=== PATIENT | female | born 1955 | race Caucasian/White ===

== ENCOUNTER 2016-09-28 08:13 | Inpatient (IN) ==
[~2016-09-28 08:13] MED LIST: ASPIRIN 325 MG TABLET PO ONE; DIAZEPAM 5 MG TABLET PO ONE; MAGNESIUM SULF RIDER 2 GM in PREMIX 1 EACH IV PRN; POTASSIUM CHLORIDE RIDER 10 MEQ in PREMIX 1 EACH IV PRN; diphenhydrAMINE CAP 25 MG CAPSULE PO ONE
[2016-09-28] MEDS ORDERED: ALBUTEROL 0.63 MG/3 ML NEB RESP TX STA (09:31)
[2016-09-28] MEDS ORDERED: DIAZEPAM 5 MG TABLET ONE (09:44)
[2016-09-28] MEDS ORDERED: diphenhydrAMINE CAP 25 MG CAPSULE ONE (09:44)
[2016-09-28] MEDS ORDERED: ASPIRIN 325 MG TABLET ONE (09:44)
[2016-09-28] MEDS: SODIUM CHLORIDE 0.45% 1,000 ML IV SCH ×2 (10:01→23:52)
[2016-09-28] MEDS ORDERED: HEPARIN/NACL 0.9% 2 UNITS/ML 1,000 ML IV ONE (10:47)
[2016-09-28] MEDS ORDERED: SODIUM BICARBONATE 2.4 MEQ/5 ML VIAL ONE (10:47)
[2016-09-28] MEDS ORDERED: LIDOCAINE 1% 20 ML VIAL ONE (10:47)
--- NOTE | 2016-09-28 11:00 | History and Physical Update ---
Sedation H&P Update - History and Physical H&P was reviewed, the patient examined and there: are no changes in the patients condition since last H&P was completed. - Dictation Physical: refer to scanned H&P - Physical Exam Mental Status: alert and oriented Heart: regular rate and rhythm Lung: clear to auscultation Abdomen: within normal limits Vitals: within normal limits - Sedation Plan for Sedation: moderate Patient Consent: Procedure disscussed with patient and patinet has consented., Risks and benefits were discussed with patient,including infection,, bleeding, injury to surrounding structures, seizure, temporary nerve, Patient understands and accepts potential risks/benefits and agrees to, proceed. ASA Class: IV Airway Assessment: Class II: Soft palate, uvula, fauces visible
[2016-09-28] MEDS ORDERED: fentaNYL 100 MCG/2 ML VIAL ONE ×2 (11:06→11:47)
[2016-09-28] MEDS ORDERED: MIDAZOLAM 2 MG/2 ML VIAL ONE ×2 (11:06→11:27)
[2016-09-28] MEDS ORDERED: ALBUTEROL 2.5 MG/3 ML NEB RESP TX PRN ×2 (12:09→13:18)
[2016-09-28] MEDS ORDERED: traMADol 50 MG TABLET PO PRN (12:09)
[2016-09-28] MEDS ORDERED: NON-FORMULARY MEDICATION (Albuterol Sulfate [Proair Respiclick] 2 PUFF) INH PRN (12:09)
[2016-09-28] MEDS ORDERED: NITROGLYCERIN SL 0.4 MG TABLET SL PRN (12:13)
[2016-09-28] MEDS ORDERED: ONDANSETRON 4 MG/2 ML VIAL IV PRN (12:13)
[2016-09-28] MEDS ORDERED: ACETAMINOPHEN 325 MG TABLET PO PRN (12:13)
[2016-09-28] MEDS ORDERED: MORPHINE 2 MG/1 ML SYRINGE IV PRN (12:13)
[2016-09-28] MEDS ORDERED: GLUCAGON 1 MG VIAL IM PRN (12:16)
[2016-09-28] MEDS ORDERED: DEXTROSE 50% 25 GM/50 ML VIAL IV PRN (12:16)
--- NOTE | 2016-09-28 12:26 | Cardiac Catheterization ---
Date of Procedure:: 09/28/16 Pre-op Diagnosis: Severe shortness of breath Post-op diagnosis: other (Mild pulmonary hypertension, angiographically normal codominant coronary arteries) Procedure: 1. Selective left and right coronary angiography. 2. Left heart catheterization with left ventriculogram. 3. Right iliac angiography to rule out vascular complications. 4. Right heart catheterization. 5. Application of Vascade closure device of the right femoral arteriotomy site. Impression: 1. Angiographically normal coronary arteries. 2. co-dominant coronary arteries. 3. Ejection fraction 65 %. 4. Angiographically normal right iliac artery without evidence of vascular complications. 5. Mild pulmonary hypertension. Plan: 1. Risk factor modification. 2. Noncardiac evaluation of symptoms. Equipment: Diagnostic 6 [place] JL4, JR4, pigtail catheters, [place] catheter. Hemodynamics: Aortic pressure 159/70 mmHg, left ventricular pressure 150/17 mmHg, LVEDP 26 mmHg Right atrial pressure 2 mmHg, right ventricle 47/29 mmHg, pulmonary artery pressure 47/28 mmHg, wedge pressure 20 mmHg Thermodilution cardiac output 7.11 L/min Sedation: Versed 4 mg, fentanyl 125 mcg Procedure: After informed consent was obtained the patient was prepped and draped in sterile fashion. The right groin was infiltrated with 1% lidocaine and the right femoral vein and artery were accessed via modified Seldinger technique using a micropuncture needle and 6 [place] femoral venous and arterial sheaths were placed. A [place] catheter was advanced through the venous sheath into the pulmonary artery where thermodilution measurements were obtained. Right heart pressures were obtained on catheter pullback. The [place] catheter was discarded and attention was turned to the left heart catheterization. All catheter exchanges were performed over a guidewire under fluoroscopic guidance. Diagnostic 6 [place] JL4 and JR4 catheters were advanced to the left and right coronary arteries respectively and multiple cineangiograms were performed in varying degrees of obliquity and angulation. Thereafter a pigtail catheter was advanced into the left ventricle where hemodynamics were obtained followed by left ventriculogram. At conclusion of the procedure right iliac angiography was performed to rule out vascular complications. A Vascade closure device was unsuccessfully applied to the right femoral arteriotomy site. Findings: 1. The left main artery is short and otherwise angiographically normal. 2. The left anterior descending artery extends to the apex and wraps around. It is angiographically normal. 3. There is not an intermediate ramus branch. 4. The circumflex artery is a codominant vessel, free of significant disease. 5. The right coronary artery is a codominant vessel supplying the posterior descending artery. It is angiographically normal. 6. Ejection fraction is 65 % with normal anterior, inferior and apical wall motion. 7. No significant mitral regurgitation. 8. No significant aortic stenosis. 9. The right iliac artery is angiographically normal without evidence of vascular complications. Contrast use: Omnipaque 78 cc Complications: none Specimens removed: none Devices implanted: Vascade Surgeon / Physician: Tiffany Coburn Fan Installer: none (Lenora Castellon) Estimated blood loss: minimal Specimens: none sent Condition: stable Disposition: floor - Discharge Disposition: Disch To Home/Self Care Condition at Discharge: Stable Activity: no lifting (For 1 week) Hygiene: may shower Driving: not for (1 more day) - Medications / Follow-up Referrals: Tiffany Coburn MD [Physician] - 2 Weeks
--- NOTE | 2016-09-28 12:29 | Event Note ---
The patient was admitted to the [facility] for elective left and right heart catheterization. Upon admission she was observed to have significant worsening in her breathing. She has severe, oxygen dependent COPD and is usually followed by Dr. Nugent. When I saw her in clinic last week she was expressing some symptoms of worsening dyspnea. Chest x-ray was mildly abnormal with possible pneumonia so Levaquin was initiated. When I initially encountered her in the [facility] preoperatively she had even further worsening of her breathing was profoundly dyspneic, it took a while and some nebulizer treatments to resolve her resting tachypnea. Because of her severe pulmonary disease and worsening symptoms, I am going to admit her for observation so that Dr. Nugent can evaluate her and recommend any further workup or treatment.
[2016-09-28] MEDS ORDERED: CYANOCOBALAMIN 1000 MCG/1 ML VIAL IM SCH (12:30)
--- NOTE | 2016-09-28 13:21 | XRay Report ---
Portable chest Date: 09/28/2016 Clinical history: COPD, PNA, shortness of breath Comparison: 09/23/2016 Technique: Portable AP supine chest Findings: The heart is borderline in size. The lungs are overexpanded with chronic scarring. Diffuse parenchymal findings at the lung bases. Decreased parenchymal findings in the right infrahilar location. Smaller pleural effusions. Stable mediastinum and osseous structures. Impression: COPD with chronic scarring. Reduced atelectasis/infiltration in the right infrahilar location. Additional minimal infiltration/edema at the lung bases with smaller pleural effusions. PROCEDURE INTERPRETED AT [facility] DEPARTMENT OF RADIOLOGY Final Report Signed by: Dr. Marybel Abebe
[2016-09-28 13:47] LABS: Basophils # 0.1 10*3/uL (0.0-0.2); Basophils % 0.8 % (0.0-0.8); Calcium 8.4 MG/DL (8.5-10.1); Eosinophils # 0.2 10*3/uL (0.0-0.87); Hemoglobin 9.7 GM/DL (12.0-16.0); Immature Granulocytes % 0.3 %; Immature Granulocytes Absolute 0.03 #; Lymphocytes # 1.9 10*3/uL (1.4-4.0); Lymphocytes % 18.1 % (21.3-54.2); Mean Corpuscular HGB Conc 29.5 GM/DL (32-36); Mean Corpuscular Hemoglobin 24 PG (27-34); Mean Corpuscular Volume 79.7 FL (87-102); Mean Platelet Volume 9.4 FL (9.6-12.0); Monocytes # 0.8 10*3/uL (0.11-0.8); Monocytes % 7.5 % (1.7-12.7); Neutrophils # 7.6 10*3/uL (1.4-7.4); Neutrophils % 71.3 % (38.7-73.9); Osmolality,Calculated 280.1 MOS/KG (273-304); Platelet Count 263 T/CUMM (130-400); Potassium 3.8 MMOL/L (3.5-5.1); Red Blood Count 4.13 MC/CUMM (3.8-5.5); Red Cell Distribution Width 16.4 % (9.3-17.3); White Blood Count 10.6 T/CUMM (4-12)
[2016-09-28 13:48] LABS: Hematocrit 32.9 VOL% (35.7-47.0)
--- NOTE | 2016-09-28 15:37 | Pulmonology Consult Note ---
Assessment and Plan (1) Severe chronic obstructive pulmonary disease Status: Acute Assessment and plan: The patient has very severe COPD and is very limited. Will give her a short course of IV steroids and continue respiratory therapy. Current Visit: Yes (2) Hypertension Status: Acute Assessment and plan: Her blood pressure has been reasonably stable Current Visit: Yes (3) Steroid-induced diabetes Status: Acute Assessment and plan: She will have some hyperglycemia while on steroids. Current Visit: Yes (4) Obstructive sleep apnea Status: Acute Assessment and plan: She can use her oxygen and CPAP at night. Current Visit: Yes History of Present Illness Chief complaint: Shortness of breath History of present illness: Ms. Newman is a 61 year old white female that is very well known to me. She has a long history of severe COPD and actually has been on the transplant list at [facility]. She has a history of hypertension and diabetes and obstructive sleep apnea. She came in today for cardiac catheterization. She had been having more chest tightness with exertion. Her cardiac catheterization turned out to be okay but she is having a little more trouble with her breathing. She is not coughing up any purulent secretions. Last week she did take some antibiotics for possible mild pneumonia. She did reasonably well with the catheterization. Home Medications Medication Instructions Recorded Confirmed Type Albuterol Neb [Proventil Neb] 2.5 mg RESP TX Q6H PRN 09/01/16 09/28/16 History Albuterol Sulfate [Proair 2 puff INH Q4H PRN 09/01/16 09/28/16 History Respiclick] Aspirin EC Tab 81 mg PO DAILY 09/01/16 09/28/16 History Atorvastatin [Lipitor] 20 mg PO BEDTIME 09/01/16 09/28/16 History Calcium Carbonate 600 mg PO BID 09/01/16 09/28/16 History Cyanocobalamin Inj [Vitamin B12 1,000 mcg IM Q30D 09/01/16 09/28/16 History Inj] Ferrous Sulfate [Ferrous Sulfate 325 mg PO BID 09/01/16 09/28/16 History Cap] Fluticasone/Salmeterol 500-50 1 puff INH BID 09/01/16 09/28/16 History [Advair 500-50] Furosemide Tab [Lasix Tab] 20 mg PO DAILY 09/01/16 09/28/16 History Magnesium Chloride [Slow Mag] 64 mg PO DAILY 09/01/16 09/28/16 History Metoclopramide Tab [Reglan Tab] 10 mg PO ACHS 09/01/16 09/28/16 History [place]-3 Fatty Acids [Fish Oil 1,000 mg PO DAILY 09/01/16 09/28/16 History Concentrate] Omeprazole [Prilosec] 20 mg PO BID 09/01/16 09/28/16 History Potassium Chloride [Klor-Con 8] 8 meq PO BID 09/01/16 09/28/16 History Roflumilast [Daliresp] 500 mcg PO DAILY 09/01/16 09/28/16 History Sennosides/Docusate Sodium [Stool 1 each PO BID 09/01/16 09/28/16 History Softener Tablet] Theophylline ER Tab 300 mg PO BID W/MEALS 09/01/16 09/28/16 History Tramadol HCl [Ultram] 50 mg PO Q6H PRN 09/01/16 09/28/16 History Vortioxetine Hydrobromide 10 mg PO DAILY 09/01/16 09/28/16 History [Brintellix] Zolpidem Tartrate [Ambien] 10 mg PO BEDTIME 09/01/16 09/28/16 History guaiFENesin ER TAB [Mucinex] 600 mg PO DAILY 09/01/16 09/28/16 History metFORMIN [Glucophage] 500 mg PO DAILY W/BREAKFAST 09/01/16 09/28/16 History dilTIAZem HCl [Cartia XT] 360 mg PO DAILY 09/02/16 09/28/16 History Levofloxacin Tab [Levaquin Tab] 500 mg PO DAILY tablet 09/28/16 Rx Allergies Allergy/AdvReac Type Severity Reaction Status Date / Time No Known Allergies Allergy Verified 09/01/16 13:41 - Constitutional Constitutional: Present: fatigue, weight gain. Absent: chills, fever(s) - EENT Eyes: Absent: loss of vision Ears: Absent: decreased hearing Nose, mouth and throat: Absent: dysphagia, headache(s), nasal congestion - Cardiovascular Cardiovascular: Present: chest pain with activity, dyspnea on exertion, orthopnea. Absent: chest pain at rest, edema - Respiratory Respiratory: Present: cough, wheezing. Absent: pain on inspiration, change in phlegm color - Gastrointestinal Gastrointestinal: Absent: abdominal pain, change in bowel habits, dysphagia, nausea, vomiting - Genitourinary Genitourinary: Absent: dysuria, hematuria, urinary frequency - Musculoskeletal Musculoskeletal: Present: back pain, muscle weakness - Neurological Neurological: Absent: abnormal speech, focal weakness, paresthesias Exam (Pulmonay) H&P - Constitutional Vitals: Period Temp Pulse Resp BP Sys/Perez Pulse Ox Last 24 Hr 98.0 F 80-103 18-20 143-186/61-78 92-98 General appearance: mild distress (She is mildly tachypneic now.), over weight - Head Head exam: Present: normal inspection, normocephalic - Eye Eye exam: Present: EOMI. Absent: scleral icterus Pupils: Present: BARRY - ENT ENT exam: Present: normal exam - Neck Neck exam: Present: normal inspection. Absent: lymphadenopathy, thyromegaly - Respiratory Respiratory exam: Present: decreased breath sounds, prolonged expiratory phase, wheezes (She does have mild wheezing) - Cardiovascular Cardiovascular exam: Present: regular rate and rhythm. Absent: gallop, systolic murmur - GI/Abdominal GI/Abdominal exam: Present: normal bowel sounds, soft. Absent: distended, organomegaly, tenderness - Extremities Exam Extremities exam: Absent: calf tenderness, edema - Neurological Exam Neurological exam: Present: alert, oriented X3, CN II-XII intact - Psychiatric Psychiatric exam: Present: normal affect, normal mood - Skin Skin exam: Present: warm, dry Medical,Surgical,& Family Hx - Medical History Cardio: History of: Hypertension No history of: Cardiac Dysrhythmia, Congenital Heart Disease, [place] Psychological: History of: Anxiety Disorders, Depression Neurology: No history of: Peripheral Neuropathy, Seizures HEENT: No history of: Glaucoma Endocrine: History of: Diabetes Mellitus (NIDDM), Dyslipidemia No history of: Thyroid Disorder Respiratory: History of: COPD (chronic respiratory failure), Respiratory Problems (4 liters O2) Gastrointestinal: History of: GERD No history of: Hepatitis, Liver Problems Hematology: History of: Anemia No history of: Blood Transfusion Reaction Other: No history of: Anesthesia Reactions, Cancer - Surgical History Cardiac Surgeries: Sugical HX of: Cardiac Catheterization HEENT Surgeries: Patient denies: Eye Surgery, Tonsilectomy & Adenoidectomy Abdominal Surgeries: Surgical HX of: Appendectomy, Cholecystectomy, Colonoscopy , EGD Reproductive Surgeries: Surgical HX of;: Hysterectomy Patient denies;: Breast Surgery Orthopedic Surgeries: Surgical HX of;: Orthopedic Surgery (left foot, right elbow, left elbow) - Family History Family History: Denies;: Family Cancer - Social History Smoking Status: Former smoker Frequency of Alcohol Use: None Type of Drug Use: None Results - Labs CBC & BMP: 09/28/16 13:10 09/28/16 13:10 - Diagnostic Findings Procedure: Chest x-ray: image reviewed by me, report reviewed by me (Chest x- ray show significant COPD change with slight increased markings in the right base.) Specialty Discharge - Follow Up or Referrals Follow up with: Tiffany Coburn MD [Physician] - 2 Weeks
[2016-09-28] MEDS: INSULIN REGULAR 100 UNIT/ML SUBCUT SCH ×2 (15:57→20:48)
[2016-09-28] MEDS: THEOPHYLLINE ER 300 MG TABLET PO SCH (17:06)
[2016-09-28] MEDS: METOCLOPRAMIDE 10 MG TABLET PO SCH ×2 (17:06→20:49)
[2016-09-28] MEDS: ACETAMINOPHEN/CODEINE 300-30 MG TABLET PO PRN (17:10)
[2016-09-28] MEDS: methylPREDNISolone SOD SUC 40 MG/1 ML VIAL IV SCH (17:12)
[2016-09-28] MEDS: ALBUTEROL/IPRATROPIUM 3 ML NEB RESP TX SCH (19:52)
[2016-09-28] MEDS: ZALEPLON 5 MG CAPSULE PO SCH (20:48)
[2016-09-28] MEDS: ATORVASTATIN 20 MG TABLET PO SCH (20:48)
[2016-09-28] MEDS: FLUTICASONE/SALMETEROL 500-50 DISKUS 14 DOSE INH SCH (20:48)
[2016-09-28] MEDS: CALCIUM (CARBONATE) 600 MG TABLET PO SCH (20:49)
[2016-09-28] MEDS: POTASSIUM CHLORIDE 8 MEQ CAPSULE PO SCH (20:49)
[2016-09-28] MEDS: DOCUSATE/SENNA 50-8.6 MG TABLET PO SCH (20:49)
[2016-09-28] MEDS: FERROUS SULFATE 325 MG TABLET PO SCH (20:49)
[2016-09-29] MEDS: methylPREDNISolone SOD SUC 40 MG/1 ML VIAL IV SCH ×4 (00:06→23:51)
[2016-09-29] MEDS: ALBUTEROL/IPRATROPIUM 3 ML NEB RESP TX SCH ×4 (00:34→19:31)
[2016-09-29] MEDS: SODIUM CHLORIDE 0.45% 1,000 ML IV SCH ×2 (02:30→13:30)
[2016-09-29] MEDS: ENOXAPARIN 40 MG/0.4 ML SYRINGE SUBCUT SCH (05:45)
[2016-09-29 05:54] LABS: Calcium 9.2 MG/DL (8.5-10.1); Potassium 4.2 MMOL/L (3.5-5.1)
[2016-09-29 06:20] LABS: Basophils % 0.3 % (0.0-0.8); Hematocrit 36.5 VOL% (35.7-47.0); Hemoglobin 10.8 GM/DL (12.0-16.0); Immature Granulocytes Absolute 0.12 #; Lymphocytes # 0.4 10*3/uL (1.4-4.0); Mean Corpuscular HGB Conc 29.6 GM/DL (32-36); Mean Corpuscular Hemoglobin 24 PG (27-34); Mean Corpuscular Volume 80.2 FL (87-102); Mean Platelet Volume 9.9 FL (9.6-12.0); Monocytes # 0.1 10*3/uL (0.11-0.8); Monocytes % 0.6 % (1.7-12.7); Neutrophils # 11.6 10*3/uL (1.4-7.4); Neutrophils % 95.1 % (38.7-73.9); Platelet Count 273 T/CUMM (130-400); Red Blood Count 4.55 MC/CUMM (3.8-5.5); White Blood Count 12.2 T/CUMM (4-12)
[2016-09-29 06:49] LABS: Band Neutrophils 1 % (0-10); Hypochromasia 1+; Lymphocytes 5 % (20-55); Microcytosis 1+; Segmented Neutrophils 93 % (50-85); Total Cells Counted 100
[2016-09-29 06:50] LABS: Platelet Estimate Normal
--- NOTE | 2016-09-29 08:30 | Pulmonology Progress Note ---
Pulmonary - PN: Subj Interval history: The patient is a 61-year-old white lady with very severe COPD. She came in and had a cardiac catheterization yesterday. Last week she had been having a little bit of cough and congestion and she still little short of breath now. She feels a little better but still has some sputum production. She is starting to move around a little better. She feels like her breathing may be better today. Exam (Progress Note) - Constitutional Vitals: Period Temp Pulse Resp BP Sys/Perez Pulse Ox Last 24 Hr 97.1 F-98.6 F 80-109 16-22 131-186/60-89 89-98 Exam: General appearance: no distress (She looks more comfortable today and is less short of breath.), over weight - Head Head exam: Present: normal inspection, normocephalic - Eye Eye exam: Present: EOMI. Absent: scleral icterus Pupils: Present: BARRY - ENT ENT exam: Present: normal exam - Neck Neck exam: Present: normal inspection. Absent: lymphadenopathy, thyromegaly - Respiratory Respiratory exam: Present: She has fair breath sounds bilaterally with mild wheezing now. - Cardiovascular Cardiovascular exam: Present: regular rate and rhythm. Absent: gallop, systolic murmur - GI/Abdominal GI/Abdominal exam: Present: normal bowel sounds, soft. Absent: distended, organomegaly, tenderness - Extremities Exam Extremities exam: Absent: calf tenderness, edema - Neurological Exam Neurological exam: Present: alert, oriented X3, CN II-XII intact - Psychiatric Psychiatric exam: Present: normal affect, normal mood - Skin Skin exam: Present: warm, dry Results - Labs CBC & BMP: 09/29/16 04:49 09/29/16 04:49 Assessment and Plan (1) Severe chronic obstructive pulmonary disease Status: Acute Assessment and plan: The patient has very severe COPD and is very limited. Will give her a short course of IV steroids and continue respiratory therapy. She does look a little better today. Current Visit: Yes (2) Hypertension Status: Acute Assessment and plan: Her blood pressure has been reasonably stable Current Visit: Yes (3) Steroid-induced diabetes Status: Acute Assessment and plan: She will have some hyperglycemia while on steroids. Her glucose is 136 this morning. Current Visit: Yes (4) Obstructive sleep apnea Status: Acute Assessment and plan: She can use her oxygen and CPAP at night. Current Visit: Yes Specialty Discharge - Follow Up or Referrals Follow up with: Tiffany Coburn MD [Physician] - 2 Weeks
[2016-09-29] MEDS: INSULIN REGULAR 100 UNIT/ML SUBCUT SCH ×4 (08:36→21:03)
[2016-09-29] MEDS: POTASSIUM CHLORIDE 8 MEQ CAPSULE PO SCH ×2 (08:49→21:05)
[2016-09-29] MEDS: MAGNESIUM CHLORIDE 64 MG TABLET PO SCH (08:49)
[2016-09-29] MEDS: LEVOFLOXACIN 500 MG TABLET PO SCH (08:49)
[2016-09-29] MEDS: THEOPHYLLINE ER 300 MG TABLET PO SCH ×2 (08:49→16:23)
[2016-09-29] MEDS: FERROUS SULFATE 325 MG TABLET PO SCH ×2 (08:49→21:03)
[2016-09-29] MEDS: ASPIRIN EC 81 MG TABLET PO SCH (08:49)
[2016-09-29] MEDS: DOCUSATE/SENNA 50-8.6 MG TABLET PO SCH ×2 (08:50→21:03)
[2016-09-29] MEDS: DILTIAZEM CD 180 MG CAPSULE PO SCH (08:50)
[2016-09-29] MEDS: METOCLOPRAMIDE 10 MG TABLET PO SCH ×4 (08:50→21:03)
[2016-09-29] MEDS: OMEGA 3 ACID ETHYL ESTERS 1 GM CAPSULE PO SCH (08:50)
[2016-09-29] MEDS: ROFLUMILAST 500 MCG TABLET PO SCH (08:50)
[2016-09-29] MEDS: CALCIUM (CARBONATE) 600 MG TABLET PO SCH ×2 (08:50→21:02)
[2016-09-29] MEDS: FUROSEMIDE 20 MG TABLET PO SCH (08:51)
[2016-09-29] MEDS: PANTOPRAZOLE 40 MG TABLET PO SCH ×2 (08:51→21:02)
[2016-09-29] MEDS: cefTRIAXone 1,000 MG in SODIUM CHLORIDE 0.9% 100 ML IV SCH (08:53)
[2016-09-29] MEDS: FLUTICASONE/SALMETEROL 500-50 DISKUS 14 DOSE INH SCH ×2 (08:53→21:02)
[2016-09-29] MEDS ORDERED: BRINTELLIX 10 MG PO SCH (09:00)
--- NOTE | 2016-09-29 11:37 | Cardiology Progress Note ---
<Bell Antunez - Last Filed: 09/29/16 11:20> Assessment and Plan (1) Hypertension Status: Acute Assessment and plan: See plan of care listed below. Current Visit: Yes (2) Severe chronic obstructive pulmonary disease Status: Chronic Assessment and plan: See plan of care listed below. Current Visit: Yes (3) Diabetes Status: Chronic Assessment and plan: See plan of care listed below. Current Visit: Yes (4) Hyperlipidemia Status: Chronic Assessment and plan: See plan of care listed below. Current Visit: Yes (5) Obstructive sleep apnea Status: Chronic Assessment and plan: See plan of care listed below. Current Visit: Yes Cardiology - PN: Subj Interval history: Board Runner: Dr. Coburn The patient was admitted to the [facility] for elective left and right heart catheterization. Upon admission she was observed to have significant worsening in her breathing. She has severe, oxygen dependent COPD and is usually followed by Dr. Nugent. Chest x-ray was mildly abnormal with possible pneumonia so Levaquin was initiated. She is now status post heart catheterization per Dr. Coburn with the following impressions noted: Impression: 1. Angiographically normal coronary arteries. 2. co-dominant coronary arteries. 3. Ejection fraction 65 %. 4. Angiographically normal right iliac artery without evidence of vascular complications. 5. Mild pulmonary hypertension. Plan: 1. Risk factor modification. 2. Noncardiac evaluation of symptoms. Postoperatively, she was transferred to the telemetry unit in stable condition. Because of her severe pulmonary disease and worsening dyspnea and tachypnea, she was admitted for observation so that Dr. Chino Nugent can evaluate her and recommend any further workup or treatment. She was evaluated by Dr. Chino Nugent yesterday. IV steroid therapy and IV Rocephin was initiated. She reports that her breathing has slightly improved. However, it has not yet returned to baseline. Per patient's report, Dr. Nugent wants her to stay in the hospital for a couple more days for treatment of her pneumonia. Right groin is soft without bleeding or hematoma and bruit. Distal pulses present. Patient is ambulated around the room without difficulty. Right groin has remained stable post ambulation. Labs stable. Patient is doing well post heart catheterization and is stable for discharge when ok with pulmonary. She will be given follow-up appointment with Dr. Coburn 2 weeks after discharge. Assessment/plan: 1. PNEUMONIA - White blood cell count 12.2. Afebrile. Continue current plan of care with IV antibiotics. Management per pulmonary. 2. SEVERE COPD - Management per pulmonary. 3. OBSTRUCTIVE SLEEP APNEA - CPAP nightly 4. HYPERLIPDEMIA - Continue current plan of care with lipid lowering agent. 5. DIABETES -Clinically stable. Continue sliding scale insulin. Will monitor blood sugar closely as patient is on steroid therapy. Metformin can be resumed 48 hours post catheterization. 6. HYPERTENSION -This suboptimally controlled. Low-dose MARCIAL inhibitor has been added to patient's medication regimen patient is a diabetic. 7. STATUS POST RIGHT AND LEFT HEART CATH - Patient is doing well post heart catheterization and is stable for discharge when ok with pulmonary. -Further plan and addendum to follow per Dr. Burrell. Exam (Progress Note) - Constitutional Vitals: Period Temp Pulse Resp BP Sys/Perez Pulse Ox Last 24 Hr 97.1 F-98.6 F 80-109 16-22 131-169/60-89 89-98 Exam: General: Appears well with no apparent distress. Pleasant and cooperative. Appears comfortable. HEENT: PERRL, normocephalic, atraumatic. Mucous membranes moist. No jaundice noted. Conjunctiva moist and clear, sclerae anicteric Neck: No JVD/HJR, no thyromegaly or lymphadenopathy noted. No carotid bruit appreciated Cardiac: Regular rate and rhythm. No murmur rub or gallop. Lungs: Minimal wheezing noted, requiring oxygen 2 L via nasal cannula. Abdomen: Soft, bowel sounds normoactive. Nontender and nondistended. No abdominal bruit or thrill noted. No masses noted. Extremities: No clubbing, cyanosis noted. No edema noted. Upper extremity pulses 2+. Lower extremity pulses 2+. Capillary refill less than 3 seconds. Right groin soft without bleeding, hematoma and bruit. Distal pulses 2+. Skin: No unusual lesions or rashes. No skin breakdown appreciated. Neuro: Awake, alert and oriented 3. Moves all extremities well without hemiparesis or paralysis. No essential tremor is appreciated. Result/EKG - Labs CBC & BMP: 09/29/16 04:49 09/29/16 04:49 Lab Results: I have reviewed the past 24 hour labs Labs: Laboratory Results - last 24 hr 09/28/16 09/28/16 09/28/16 13:10 13:10 15:39 WBC 10.6 RBC 4.13 Hgb 9.7 L Hct 32.9 L MCV 79.7 L MCH 24 L MCHC 29.5 L RDW 16.4 Plt Count 263 MPV 9.4 L Neut % (Auto) 71.3 Lymph % (Auto) 18.1 L [place] % (Auto) 7.5 Eos % (Auto) 2.0 Baso % (Auto) 0.8 Neut # (Auto) 7.6 H Lymph # (Auto) 1.9 [place] # (Auto) 0.8 Eos # (Auto) 0.2 Baso # (Auto) 0.1 Total Counted Immature Gran % 0.3 Nucleated RBC % 0.0 Immature Gran # 0.03 Segmented Neutrophils Band Neutrophils Lymphocytes Monocytes Nucleated RBCs # 0.00 Platelet Estimate Hypochromasia Microcytosis Sodium 142 Potassium 3.8 Chloride 96 L Carbon Dioxide 43 H Anion Gap 6.8 BUN 8 Creatinine 0.60 GFR Calculation 113 BUN/Creatinine Ratio 13.00 Glucose 106 POC Glucose 114 H Calculated Osmolality 280.1 Calcium 8.4 L Theophylline 09/28/16 09/28/16 09/29/16 18:01 19:49 04:49 WBC 12.2 H RBC 4.55 Hgb 10.8 L Hct 36.5 MCV 80.2 L MCH 24 L MCHC 29.6 L RDW 16.0 Plt Count 273 MPV 9.9 Neut % (Auto) 95.1 H Lymph % (Auto) 3.0 L [place] % (Auto) 0.6 L Eos % (Auto) 0.0 Baso % (Auto) 0.3 Neut # (Auto) 11.6 H Lymph # (Auto) 0.4 L [place] # (Auto) 0.1 L Eos # (Auto) 0.0 Baso # (Auto) 0.0 Total Counted 100 Immature Gran % 1.0 Nucleated RBC % 0.0 Immature Gran # 0.12 Segmented Neutrophils 93 H Band Neutrophils 1 Lymphocytes 5 L Monocytes 1 L Nucleated RBCs # 0.00 Platelet Estimate Normal Hypochromasia 1+ Microcytosis 1+ Sodium Potassium Chloride Carbon Dioxide Anion Gap BUN Creatinine GFR Calculation BUN/Creatinine Ratio Glucose POC Glucose 214 H Calculated Osmolality Calcium Theophylline 2.8 L 09/29/16 09/29/16 04:49 07:26 WBC RBC Hgb Hct MCV MCH MCHC RDW Plt Count MPV Neut % (Auto) Lymph % (Auto) [place] % (Auto) Eos % (Auto) Baso % (Auto) Neut # (Auto) Lymph # (Auto) [place] # (Auto) Eos # (Auto) Baso # (Auto) Total Counted Immature Gran % Nucleated RBC % Immature Gran # Segmented Neutrophils Band Neutrophils Lymphocytes Monocytes Nucleated RBCs # Platelet Estimate Hypochromasia Microcytosis Sodium 143 Potassium 4.2 Chloride 97 L Carbon Dioxide 41 H Anion Gap 9.2 BUN 8 Creatinine 0.50 L GFR Calculation 120 BUN/Creatinine Ratio 16.00 Glucose 136 H POC Glucose 141 H Calculated Osmolality 284.0 Calcium 9.2 Theophylline Specialty Discharge - Follow Up or Referrals Follow up with: Tiffany Coburn MD [Physician] - 2 Weeks <Ron Burrell - Last Filed: 09/29/16 15:55> Cardiology - PN: Subj Interval history: This patient was admitted postcatheterization for an exacerbation of severe COPD. She has better with intravenous steroids as outlined by Dr. Nugent we will continue following. She is cardiac stable and her cath site is healing well. Exam (Progress Note) - Constitutional Vitals: Period Temp Pulse Resp BP Sys/Perez Pulse Ox Last 24 Hr 97.1 F-98.6 F 86-109 16-22 137-164/60-88 89-98 Result/EKG - Labs CBC & BMP: 09/29/16 04:49 09/29/16 04:49 Labs: Laboratory Results - last 24 hr 09/28/16 09/28/16 09/29/16 18:01 19:49 04:49 WBC 12.2 H RBC 4.55 Hgb 10.8 L Hct 36.5 MCV 80.2 L MCH 24 L MCHC 29.6 L RDW 16.0 Plt Count 273 MPV 9.9 Neut % (Auto) 95.1 H Lymph % (Auto) 3.0 L [place] % (Auto) 0.6 L Eos % (Auto) 0.0 Baso % (Auto) 0.3 Neut # (Auto) 11.6 H Lymph # (Auto) 0.4 L [place] # (Auto) 0.1 L Eos # (Auto) 0.0 Baso # (Auto) 0.0 Total Counted 100 Immature Gran % 1.0 Nucleated RBC % 0.0 Immature Gran # 0.12 Segmented Neutrophils 93 H Band Neutrophils 1 Lymphocytes 5 L Monocytes 1 L Nucleated RBCs # 0.00 Platelet Estimate Normal Hypochromasia 1+ Microcytosis 1+ Sodium Potassium Chloride Carbon Dioxide Anion Gap BUN Creatinine GFR Calculation BUN/Creatinine Ratio Glucose POC Glucose 214 H Calculated Osmolality Calcium Theophylline 2.8 L 09/29/16 09/29/16 09/29/16 04:49 07:26 11:43 WBC RBC Hgb Hct MCV MCH MCHC RDW Plt Count MPV Neut % (Auto) Lymph % (Auto) [place] % (Auto) Eos % (Auto) Baso % (Auto) Neut # (Auto) Lymph # (Auto) [place] # (Auto) Eos # (Auto) Baso # (Auto) Total Counted Immature Gran % Nucleated RBC % Immature Gran # Segmented Neutrophils Band Neutrophils Lymphocytes Monocytes Nucleated RBCs # Platelet Estimate Hypochromasia Microcytosis Sodium 143 Potassium 4.2 Chloride 97 L Carbon Dioxide 41 H Anion Gap 9.2 BUN 8 Creatinine 0.50 L GFR Calculation 120 BUN/Creatinine Ratio 16.00 Glucose 136 H POC Glucose 141 H 150 H Calculated Osmolality 284.0 Calcium 9.2 Theophylline 09/29/16 15:28 WBC RBC Hgb Hct MCV MCH MCHC RDW Plt Count MPV Neut % (Auto) Lymph % (Auto) [place] % (Auto) Eos % (Auto) Baso % (Auto) Neut # (Auto) Lymph # (Auto) [place] # (Auto) Eos # (Auto) Baso # (Auto) Total Counted Immature Gran % Nucleated RBC % Immature Gran # Segmented Neutrophils Band Neutrophils Lymphocytes Monocytes Nucleated RBCs # Platelet Estimate Hypochromasia Microcytosis Sodium Potassium Chloride Carbon Dioxide Anion Gap BUN Creatinine GFR Calculation BUN/Creatinine Ratio Glucose POC Glucose 164 H Calculated Osmolality Calcium Theophylline
[2016-09-29] MEDS: ACETAMINOPHEN/CODEINE 300-30 MG TABLET PO PRN (11:45)
[2016-09-29] MEDS: LISINOPRIL 5 MG TABLET PO SCH (12:48)
[2016-09-29] MEDS ORDERED: ALUMINUM/MAGNES/SIMETH MAX STR 30 ML UDCUP PO PRN (18:34)
[2016-09-29] MEDS: ZALEPLON 5 MG CAPSULE PO SCH (21:02)
[2016-09-29] MEDS: ATORVASTATIN 20 MG TABLET PO SCH (21:03)
[2016-09-30] MEDS: ALBUTEROL/IPRATROPIUM 3 ML NEB RESP TX SCH ×4 (01:29→19:01)
[2016-09-30 05:32] LABS: Basophils % 0.1 % (0.0-0.8); Immature Granulocytes % 0.7 %; Lymphocytes # 0.6 10*3/uL (1.4-4.0); Lymphocytes % 3.8 % (21.3-54.2); Mean Corpuscular HGB Conc 29.4 GM/DL (32-36); Mean Corpuscular Hemoglobin 23 PG (27-34); Mean Corpuscular Volume 79.4 FL (87-102); Mean Platelet Volume 10.1 FL (9.6-12.0); Monocytes # 0.3 10*3/uL (0.11-0.8); Monocytes % 2.1 % (1.7-12.7); Neutrophils # 14.2 10*3/uL (1.4-7.4); Neutrophils % 93.3 % (38.7-73.9); Platelet Count 328 T/CUMM (130-400); Red Blood Count 4.41 MC/CUMM (3.8-5.5); Red Cell Distribution Width 16.8 % (9.3-17.3); White Blood Count 15.2 T/CUMM (4-12)
[2016-09-30 05:43] LABS: Hemoglobin 10.4 GM/DL (12.0-16.0)
[2016-09-30 06:03] LABS: Hypochromasia 1+; Lymphocytes 8 % (20-55); Platelet Estimate Adequate; Segmented Neutrophils 91 % (50-85); Total Cells Counted 100
[2016-09-30 06:04] LABS: Microcytosis 1+
[2016-09-30] MEDS: ENOXAPARIN 40 MG/0.4 ML SYRINGE SUBCUT SCH (06:06)
[2016-09-30 06:12] LABS: Calcium 8.9 MG/DL (8.5-10.1); Osmolality,Calculated 288.7 MOS/KG (273-304)
[2016-09-30] MEDS: INSULIN REGULAR 100 UNIT/ML SUBCUT SCH ×4 (07:55→20:56)
--- NOTE | 2016-09-30 08:34 | Pulmonology Progress Note ---
Pulmonary - PN: Subj Interval history: The patient is a 61-year-old white lady with very severe COPD. She came in and had a cardiac catheterization yesterday. Last week she had been having a little bit of cough and congestion and she still little short of breath now. She feels a little better but still has some sputum production. She feels like her breathing is better. She did not sleep very well last night. She is ambulating some. She still has some cough. Exam (Progress Note) - Constitutional Vitals: Period Temp Pulse Resp BP Sys/Perez Pulse Ox Last 24 Hr 97.0 F-98.9 F 77-101 16-20 110-156/55-78 91-99 Exam: General appearance: no distress (She looks better with less shortness of breath and seems to be breathing comfortably.) - Head Head exam: Present: normal inspection, normocephalic - Eye Eye exam: Present: EOMI. Absent: scleral icterus Pupils: Present: BARRY - ENT ENT exam: Present: normal exam - Neck Neck exam: Present: normal inspection. Absent: lymphadenopathy, thyromegaly - Respiratory Respiratory exam: Present: She has fair breath sounds bilaterally is moving air a little better with less wheezing. - Cardiovascular Cardiovascular exam: Present: regular rate and rhythm. Absent: gallop, systolic murmur - GI/Abdominal GI/Abdominal exam: Present: normal bowel sounds, soft. Absent: distended, organomegaly, tenderness - Extremities Exam Extremities exam: Absent: calf tenderness, edema - Neurological Exam Neurological exam: Present: alert, oriented X3, CN II-XII intact - Psychiatric Psychiatric exam: Present: normal affect, normal mood - Skin Skin exam: Present: warm, dry Results - Labs CBC & BMP: 09/30/16 04:07 09/30/16 04:07 Assessment and Plan (1) Severe chronic obstructive pulmonary disease Status: Chronic Assessment and plan: The patient has very severe COPD and is very limited. Will give her a short course of IV steroids and continue respiratory therapy. Her breathing is better and will check a chest x-ray tomorrow and she can probably go home. Current Visit: Yes (2) Hypertension Status: Acute Assessment and plan: Her blood pressure has been reasonably stable. She is not having any signs of heart failure. Current Visit: Yes (3) Steroid-induced diabetes Status: Acute Assessment and plan: She will have some hyperglycemia while on steroids. Her glucose is 132 this morning. Current Visit: Yes (4) Obstructive sleep apnea Status: Chronic Assessment and plan: She can use her oxygen and CPAP at night. Current Visit: Yes Specialty Discharge - Follow Up or Referrals Follow up with: Tiffany Coburn MD [Physician] - 2 Weeks
[2016-09-30] MEDS: DILTIAZEM CD 180 MG CAPSULE PO SCH (09:03)
[2016-09-30] MEDS: ASPIRIN EC 81 MG TABLET PO SCH (09:04)
[2016-09-30] MEDS: CALCIUM (CARBONATE) 600 MG TABLET PO SCH ×2 (09:04→20:56)
[2016-09-30] MEDS: FERROUS SULFATE 325 MG TABLET PO SCH ×2 (09:04→20:56)
[2016-09-30] MEDS: OMEGA 3 ACID ETHYL ESTERS 1 GM CAPSULE PO SCH (09:04)
[2016-09-30] MEDS: LEVOFLOXACIN 500 MG TABLET PO SCH (09:05)
[2016-09-30] MEDS: DOCUSATE/SENNA 50-8.6 MG TABLET PO SCH ×2 (09:05→20:56)
[2016-09-30] MEDS: THEOPHYLLINE ER 300 MG TABLET PO SCH ×2 (09:05→16:52)
[2016-09-30] MEDS: MAGNESIUM CHLORIDE 64 MG TABLET PO SCH (09:05)
[2016-09-30] MEDS: LISINOPRIL 5 MG TABLET PO SCH (09:05)
[2016-09-30] MEDS: POTASSIUM CHLORIDE 8 MEQ CAPSULE PO SCH ×2 (09:05→20:56)
[2016-09-30] MEDS: METOCLOPRAMIDE 10 MG TABLET PO SCH ×4 (09:06→20:56)
[2016-09-30] MEDS: PANTOPRAZOLE 40 MG TABLET PO SCH ×2 (09:06→20:56)
[2016-09-30] MEDS: ROFLUMILAST 500 MCG TABLET PO SCH (09:06)
[2016-09-30] MEDS: methylPREDNISolone SOD SUC 40 MG/1 ML VIAL IV SCH ×3 (09:07→23:44)
[2016-09-30] MEDS: cefTRIAXone 1,000 MG in SODIUM CHLORIDE 0.9% 100 ML IV SCH (09:07)
[2016-09-30] MEDS: FLUTICASONE/SALMETEROL 500-50 DISKUS 14 DOSE INH SCH ×2 (09:11→20:56)
[2016-09-30] MEDS: FUROSEMIDE 20 MG TABLET PO SCH (09:11)
--- NOTE | 2016-09-30 09:22 | Physician Query Form ---
CLICK EDIT DOCUMENT TO SELECT QUERY ANSWER --> OK --> SIGN Piedad Sands RN, CCDS Certified Clinical Mortgage Loan Counselor W) [phone] (f) [phone] [email or web address] PROVIDERS: Make your selection(s) from the choices in EACH section by typing an "x" and enter comments in the comment section. Please use your independent medical judgment in providing your response. This request does not imply that any particular answer is desired or expected. CLINICAL INDICATORS: (Providers should not edit this section) The medical record indicates that the patient was admitted for a heart cath, developed some SOB, "oxygen dependent COPD" and the patient was treated with 2 - 4 liters of oxygen per NC. Based on the above, could you clarify the appropriate diagnosis, if significant , that supports the above abnormalities and additional evaluation, monitoring, and/or treatment rendered: ( ) Patient is not being monitored or treated for chronic respiratory failure ( x) Patient is being monitored or treated for chronic respiratory failure ( ) Other, please specify: ( ) Clinically unable to determine COMMENTS: PLEASE ALSO DOCUMENT RESPONSE IN PROGRESS NOTES AND/OR DISCHARGE SUMMARY Use of terms such as suspected, likely, or probable (associated with a specific diagnosis that is being evaluated, monitored, or treated as if it exists) are acceptable and can be restated in the discharge summary if not ruled out. MTDD
[2016-09-30] MEDS: ACETAMINOPHEN/CODEINE 300-30 MG TABLET PO PRN (12:49)
--- NOTE | 2016-09-30 13:46 | Cardiology Progress Note ---
<Bell Antunez - Last Filed: 09/30/16 13:24> Assessment and Plan (1) Hypertension Status: Acute Assessment and plan: See plan of care listed below. Current Visit: Yes (2) Severe chronic obstructive pulmonary disease Status: Chronic Assessment and plan: See plan of care listed below. Current Visit: Yes (3) Diabetes Status: Chronic Assessment and plan: See plan of care listed below. Current Visit: Yes (4) Hyperlipidemia Status: Chronic Assessment and plan: See plan of care listed below. Current Visit: Yes (5) Obstructive sleep apnea Status: Chronic Assessment and plan: See plan of care listed below. Current Visit: Yes Cardiology - PN: Subj Interval history: Inpatient Pharmacist: Dr. Coburn The patient was admitted to the [facility] for elective left and right heart catheterization. Upon admission she was observed to have significant worsening in her breathing. She has severe, oxygen dependent COPD and is usually followed by Dr. Nugent. Chest x-ray was mildly abnormal with possible pneumonia so Levaquin was initiated. She is now status post heart catheterization per Dr. Coburn with the following impressions noted: Impression: 1. Angiographically normal coronary arteries. 2. co-dominant coronary arteries. 3. Ejection fraction 65 %. 4. Angiographically normal right iliac artery without evidence of vascular complications. 5. Mild pulmonary hypertension. Plan: 1. Risk factor modification. 2. Noncardiac evaluation of symptoms. Postoperatively, she was transferred to the telemetry unit in stable condition. Because of her severe pulmonary disease and worsening dyspnea and tachypnea, she was admitted for observation so that Dr. Chino Nugent can evaluate her and recommend any further workup or treatment. She was evaluated by Dr. Chino Nugent yesterday. IV steroid therapy and IV Rocephin was initiated. She reports that her breathing is slowly improving. Continues to complain of cough and sputum production. Dr. Nugent plans to recheck patient 's chest x ray in the morning, if improved she will most likely be ready for discharge. Right groin remains soft without bleeding or hematoma and bruit. Distal pulses present. Labs stable. Patient is doing well post heart catheterization and is stable for discharge when ok with pulmonary. She will be given follow-up appointment with Dr. Coburn 2 weeks after discharge. Assessment/plan: 1. PNEUMONIA - Slowly improving. White blood cell count 15.2. Afebrile. Continue current plan of care with IV antibiotics. Management per pulmonary. Hopeful for discharge home tomorrow. 2. SEVERE COPD - Management per pulmonary. 3. OBSTRUCTIVE SLEEP APNEA - CPAP nightly 4. HYPERLIPDEMIA - Continue current plan of care with lipid lowering agent. 5. DIABETES -Clinically stable. Continue sliding scale insulin. Will monitor blood sugar closely as patient is on steroid therapy. Metformin can be resumed 48 hours post catheterization. 6. HYPERTENSION - Better controlled after initiation of MARCIAL inhibitor yesterday. Will further adjust medications as needed throughout her hospital stay. 7. STATUS POST RIGHT AND LEFT HEART CATH - Patient is doing well post heart catheterization and is stable for discharge when ok with pulmonary. -Further plan and addendum to follow per Dr. Burrell. Exam (Progress Note) - Constitutional Vitals: Period Temp Pulse Resp BP Sys/Perez Pulse Ox Last 24 Hr 97.0 F-98.9 F 77-101 16-20 110-144/55-78 91-99 Exam: General: Appears well with no apparent distress. Pleasant and cooperative. Appears comfortable. HEENT: PERRL, normocephalic, atraumatic. Mucous membranes moist. No jaundice noted. Conjunctiva moist and clear, sclerae anicteric Neck: No JVD/HJR, no thyromegaly or lymphadenopathy noted. No carotid bruit appreciated Cardiac: Regular rate and rhythm. No murmur rub or gallop. Lungs: Clear to auscultation throughout, requiring oxygen 2 L via nasal cannula. Abdomen: Soft, bowel sounds normoactive. Nontender and nondistended. No abdominal bruit or thrill noted. No masses noted. Extremities: No clubbing, cyanosis noted. No edema noted. Upper extremity pulses 2+. Lower extremity pulses 2+. Capillary refill less than 3 seconds. Right groin soft without bleeding, hematoma and bruit. Distal pulses 2+. Skin: No unusual lesions or rashes. No skin breakdown appreciated. Neuro: Awake, alert and oriented 3. Moves all extremities well without hemiparesis or paralysis. No essential tremor is appreciated. Result/EKG - Labs CBC & BMP: 09/30/16 04:07 09/30/16 04:07 Lab Results: I have reviewed the past 24 hour labs Labs: Laboratory Results - last 24 hr 05/17/17 05/17/17 05/18/17 15:28 19:59 04:07 WBC 15.2 H RBC 4.41 Hgb 10.4 L Hct 35.0 L MCV 79.4 L MCH 23 L MCHC 29.4 L RDW 16.8 Plt Count 328 D MPV 10.1 Neut % (Auto) 93.3 H Lymph % (Auto) 3.8 L [place] % (Auto) 2.1 Eos % (Auto) 0.0 Baso % (Auto) 0.1 Neut # (Auto) 14.2 H Lymph # (Auto) 0.6 L [place] # (Auto) 0.3 Eos # (Auto) 0.0 Baso # (Auto) 0.0 Total Counted 100 Immature Gran % 0.7 Nucleated RBC % 0.0 Immature Gran # 0.10 Segmented Neutrophils 91 H Lymphocytes 8 L Monocytes 1 L Nucleated RBCs # 0.00 Platelet Estimate Adequate Hypochromasia 1+ Microcytosis 1+ Morphology Comment Sodium Potassium Chloride Carbon Dioxide Anion Gap BUN Creatinine GFR Calculation BUN/Creatinine Ratio Glucose POC Glucose 164 H 185 H Calculated Osmolality Calcium 09/30/16 09/30/16 09/30/16 04:07 07:15 12:05 WBC RBC Hgb Hct MCV MCH MCHC RDW Plt Count MPV Neut % (Auto) Lymph % (Auto) [place] % (Auto) Eos % (Auto) Baso % (Auto) Neut # (Auto) Lymph # (Auto) [place] # (Auto) Eos # (Auto) Baso # (Auto) Total Counted Immature Gran % Nucleated RBC % Immature Gran # Segmented Neutrophils Lymphocytes Monocytes Nucleated RBCs # Platelet Estimate Hypochromasia Microcytosis Morphology Comment Sodium 145 Potassium 4.0 Chloride 101 Carbon Dioxide 36 H Anion Gap 12.0 BUN 10 Creatinine 0.70 GFR Calculation 108 BUN/Creatinine Ratio 14.00 Glucose 130 H POC Glucose 132 H 106 Calculated Osmolality 288.7 Calcium 8.9 Specialty Discharge - Follow Up or Referrals Follow up with: Tiffany Coburn MD [Physician] - 2 Weeks <Ron Burrell - Last Filed: 09/30/16 16:25> Cardiology - PN: Subj Interval history: She is nearly to baseline and our plan is going to be to discharge in the a.m. once pulmonary is comfortable that she is significantly improving. Exam (Progress Note) - Constitutional Vitals: Period Temp Pulse Resp BP Sys/Perez Pulse Ox Last 24 Hr 97.0 F-98.9 F 77-101 16-20 110-144/53-78 93-99 Result/EKG - Labs CBC & BMP: 09/30/16 04:07 09/30/16 04:07 Labs: Laboratory Results - last 24 hr 09/29/16 09/30/16 09/30/16 19:59 04:07 04:07 WBC 15.2 H RBC 4.41 Hgb 10.4 L Hct 35.0 L MCV 79.4 L MCH 23 L MCHC 29.4 L RDW 16.8 Plt Count 328 D MPV 10.1 Neut % (Auto) 93.3 H Lymph % (Auto) 3.8 L [place] % (Auto) 2.1 Eos % (Auto) 0.0 Baso % (Auto) 0.1 Neut # (Auto) 14.2 H Lymph # (Auto) 0.6 L [place] # (Auto) 0.3 Eos # (Auto) 0.0 Baso # (Auto) 0.0 Total Counted 100 Immature Gran % 0.7 Nucleated RBC % 0.0 Immature Gran # 0.10 Segmented Neutrophils 91 H Lymphocytes 8 L Monocytes 1 L Nucleated RBCs # 0.00 Platelet Estimate Adequate Hypochromasia 1+ Microcytosis 1+ Morphology Comment Sodium 145 Potassium 4.0 Chloride 101 Carbon Dioxide 36 H Anion Gap 12.0 BUN 10 Creatinine 0.70 GFR Calculation 108 BUN/Creatinine Ratio 14.00 Glucose 130 H POC Glucose 185 H Calculated Osmolality 288.7 Calcium 8.9 09/30/16 09/30/16 09/30/16 07:15 12:05 16:06 WBC RBC Hgb Hct MCV MCH MCHC RDW Plt Count MPV Neut % (Auto) Lymph % (Auto) [place] % (Auto) Eos % (Auto) Baso % (Auto) Neut # (Auto) Lymph # (Auto) [place] # (Auto) Eos # (Auto) Baso # (Auto) Total Counted Immature Gran % Nucleated RBC % Immature Gran # Segmented Neutrophils Lymphocytes Monocytes Nucleated RBCs # Platelet Estimate Hypochromasia Microcytosis Morphology Comment Sodium Potassium Chloride Carbon Dioxide Anion Gap BUN Creatinine GFR Calculation BUN/Creatinine Ratio Glucose POC Glucose 132 H 106 139 H Calculated Osmolality Calcium
[2016-09-30] MEDS: ZALEPLON 5 MG CAPSULE PO SCH (20:56)
[2016-09-30] MEDS: ATORVASTATIN 20 MG TABLET PO SCH (20:56)
[2016-10-01] MEDS: ALBUTEROL/IPRATROPIUM 3 ML NEB RESP TX SCH ×2 (00:19→07:16)
[2016-10-01] MEDS: ENOXAPARIN 40 MG/0.4 ML SYRINGE SUBCUT SCH (05:41)
[2016-10-01] MEDS: INSULIN REGULAR 100 UNIT/ML SUBCUT SCH ×2 (08:28→12:28)
--- NOTE | 2016-10-01 08:39 | XRay Report ---
XR chest 2V Date: 10/01/2016 4:00 AM History: Right lower lobe pneumonia Comparison: 09/28/2016 Technique: PA and lateral chest Findings: The heart is borderline in size. The lungs are over expanded with chronic scarring. Progressive parenchymal findings in the right infrahilar location. Stable mediastinum and osseous structures. Postoperative findings in the upper abdomen. Impression: COPD with chronic scarring. Progressive atelectasis/infiltration in the right infrahilar location. Follow-up chest x-ray is recommended to document clearing. PROCEDURE INTERPRETED AT [facility] DEPARTMENT OF RADIOLOGY Final Report Signed by: Dr. Marybel Abebe
--- NOTE | 2016-10-01 09:43 | Discharge Summary ---
Hospital Course - Hospital Course Hospital Course: The patient was admitted to the [facility] for elective left and right heart catheterization. Upon admission she was observed to have significant worsening in her breathing. She has severe, oxygen dependent COPD and is usually followed by Dr. Nugent. Chest x-ray was mildly abnormal with possible pneumonia so Levaquin was initiated. She is now status post heart catheterization per Dr. Coburn with the following impressions noted: Impression: 1. Angiographically normal coronary arteries. 2. co-dominant coronary arteries. 3. Ejection fraction 65 %. 4. Angiographically normal right iliac artery without evidence of vascular complications. 5. Mild pulmonary hypertension. Plan: 1. Risk factor modification. 2. Noncardiac evaluation of symptoms. Post catheterization, she was transferred to the telemetry unit in stable condition. Because of her severe pulmonary disease and worsening dyspnea and tachypnea, she was admitted for observation so that Dr. Chino Nugent can evaluate her and recommend any further workup or treatment. She was evaluated by Dr. Chino Nugent and IV steroid therapy and IV Rocephin was initiated. Right groin remains soft without bleeding, hematoma and bruit. Distal pulses present. Patient has ambulated, groin has remained stable post ambulation. Groin precautions have been reviewed with the patient. She verbalizes understanding. Over her hospital course, she was noted to be hypertensive. MARCIAL inhibitor was added to her medication regimen as she is a diabetic. Metformin will be reinitiated at discharge as her cardiac cath was greater than 48 hours ago. Labs stable. Chest x-ray this morning has improved and Dr. Nugent feels that she is now ready for discharge home. Patient will be given a follow-up appointment with Dr. Nugent in 2-3 weeks with chest x-ray. She will also be given follow-up with Dr. Coburn in 2 weeks with CBC and BMP. Patient is anxious for discharge home. Having felt that she has met maximal medical therapy, she will be discharged home in stable condition. Patient will be discharged home on her preadmission medications with the addition of Levaquin 7 days, Medrol Dosepak and lisinopril 10 mg daily. Reviewed discharge medications and discharge instructions with the patient. She verbalizes understanding of this. - Time spent with patient Time with patient DS: Greater than 30 minutes Diagnosis - Discharge Diagnosis (1) Hypertension Status: Chronic (2) Severe chronic obstructive pulmonary disease Status: Chronic (3) Diabetes Status: Chronic (4) Hyperlipidemia Status: Chronic (5) Obstructive sleep apnea Status: Chronic Specialty Discharge - Follow Up or Referrals Follow up with: Chino Nugent MD [Physician] - (2-3 weeks with chest x-ray) Tiffany Coburn MD [Physician] - 2 Weeks (two weeks with CBC and BMP ) Discharge Plan - Discharge Data Disposition: Disch To Home/Self Care Condition at Discharge: Stable Discharge Diet: advance to your usual diet Activity: no lifting (Avoid heavy lifting and squatting 1 week.), other (Post cath expectations) Hygiene: may shower, other (Post cath expectations) Weight Bearing at Discharge: other (Post cath expectations) Driving: other Contact your physician if you experience:: fever over 101, Difficulty voiding, Redness or swelling, Nausea/Vomiting, Shortness of breath, Bleeding, pain uncontrolled by pain medications - Discharge Medications New methylPREDNISolone DOSEPAK [Medrol Dosepak] 4 mg PO DIRECTED #1 pack Lisinopril [Prinivil] 10 mg PO DAILY #30 tablet Continue Aspirin EC Tab 81 mg PO DAILY Omeprazole [Prilosec] 20 mg PO BID Metoclopramide Tab [Reglan Tab] 10 mg PO ACHS Ferrous Sulfate [Ferrous Sulfate Cap] 325 mg PO BID dilTIAZem HCl [Cartia XT] 360 mg PO DAILY Fluticasone/Salmeterol 500-50 [Advair 500-50] 1 puff INH BID Cyanocobalamin Inj [Vitamin B12 Inj] 1,000 mcg IM Q30D Tramadol HCl [Ultram] 50 mg PO Q6H PRN PRN Reason: Pain Theophylline ER Tab 300 mg PO BID W/MEALS Atorvastatin [Lipitor] 20 mg PO BEDTIME guaiFENesin ER TAB [Mucinex] 600 mg PO DAILY Sennosides/Docusate Sodium [Stool Softener Tablet] 1 each PO BID [place]-3 Fatty Acids [Fish Oil Concentrate] 1,000 mg PO DAILY Calcium Carbonate 600 mg PO BID Zolpidem Tartrate [Ambien] 10 mg PO BEDTIME Albuterol Sulfate [Proair Respiclick] 2 puff INH Q4H PRN PRN Reason: Shortness Of Breath/Wheezing Albuterol Neb [Proventil Neb] 2.5 mg RESP [place] Q6H PRN PRN Reason: Shortness Of Breath/Wheezing metFORMIN [Glucophage] 500 mg PO DAILY W/BREAKFAST Magnesium Chloride [Slow Mag] 64 mg PO DAILY Roflumilast [Daliresp] 500 mcg PO DAILY Potassium Chloride [Klor-Con 8] 8 meq PO BID Furosemide Tab [Lasix Tab] 20 mg PO DAILY Vortioxetine Hydrobromide [Brintellix] 10 mg PO DAILY Levofloxacin Tab [Levaquin Tab] 500 mg PO DAILY #7 tablet - Follow Up or Referral Follow Up: Tiffany Coburn MD [Physician] - 2 Weeks Chino Nugent MD [Physician] - (2-3 weeks with x-ray) - Forms/Instructions Exam - Constitutional Vitals: Period Temp Pulse Resp BP Sys/Perez Pulse Ox Last 24 Hr 97 F-98.1 F 73-92 16-20 119-170/53-65 94-99 Discharge Results Labs on day of discharge: Labs from last 24 hours 10/01/16 10/01/16 09/30/16 07:51 07:50 20:42 POC Glucose 130 H 189 H Theophylline 5.0 L 09/30/16 09/30/16 16:06 12:05 POC Glucose 139 H 106 Theophylline DS: Provider Date of admission: 09/29/16 12:38 Primary care physician: Matt Dallas MD Attending physician on admission: Tiffany Coburn, Consults: 09/28/16 12:15 Consult to Physician [CONS] Routine Comment: COPD, PNA, SOB, known to you Consulting Provider: Chino Nugent Date Notified: 09/28/16 Time Notified: 13:01 Consult Notification Comment: message left Discharging clinician: Bell Antunez NP Expected date of discharge: 10/01/16
[2016-10-01] MEDS ORDERED: LISINOPRIL 10 MG TABLET PO SCH (09:53)
[2016-10-01] MEDS: cefTRIAXone 1,000 MG in SODIUM CHLORIDE 0.9% 100 ML IV SCH (10:15)
[2016-10-01] MEDS: OMEGA 3 ACID ETHYL ESTERS 1 GM CAPSULE PO SCH (10:16)
[2016-10-01] MEDS: methylPREDNISolone SOD SUC 40 MG/1 ML VIAL IV SCH (10:16)
[2016-10-01] MEDS: LEVOFLOXACIN 500 MG TABLET PO SCH (10:17)
[2016-10-01] MEDS: ROFLUMILAST 500 MCG TABLET PO SCH (10:17)
[2016-10-01] MEDS: DOCUSATE/SENNA 50-8.6 MG TABLET PO SCH (10:17)
[2016-10-01] MEDS: CALCIUM (CARBONATE) 600 MG TABLET PO SCH (10:17)
[2016-10-01] MEDS: ASPIRIN EC 81 MG TABLET PO SCH (10:17)
[2016-10-01] MEDS: THEOPHYLLINE ER 300 MG TABLET PO SCH (10:17)
[2016-10-01] MEDS: MAGNESIUM CHLORIDE 64 MG TABLET PO SCH (10:17)
[2016-10-01] MEDS: POTASSIUM CHLORIDE 8 MEQ CAPSULE PO SCH (10:17)
[2016-10-01] MEDS: DILTIAZEM CD 180 MG CAPSULE PO SCH (10:18)
[2016-10-01] MEDS: FERROUS SULFATE 325 MG TABLET PO SCH (10:18)
[2016-10-01] MEDS: METOCLOPRAMIDE 10 MG TABLET PO SCH ×2 (10:18→12:28)
[2016-10-01] MEDS: FUROSEMIDE 20 MG TABLET PO SCH (10:18)
[2016-10-01] MEDS: PANTOPRAZOLE 40 MG TABLET PO SCH (10:18)
[2016-10-01] MEDS: ACETAMINOPHEN/CODEINE 300-30 MG TABLET PO PRN (10:19)
[2016-10-01] MEDS: FLUTICASONE/SALMETEROL 500-50 DISKUS 14 DOSE INH SCH (10:26)
[2016-10-01] MEDS: LISINOPRIL 5 MG TABLET PO SCH (10:26)
--- NOTE | 2016-10-01 11:18 | Pulmonology Progress Note ---
Pulmonary - PN: Subj Interval history: The patient is a 61-year-old white lady with very severe COPD. She came in and had a cardiac catheterization yesterday. Last week she had been having a little bit of cough and congestion and she still little short of breath now. She feels a little better but still has some sputum production. She was felt to have some mild pneumonia and is doing better now. She says she is walking around okay and her shortness of breath is better. Her wheezing is much improved. Her chest x-ray today shows a small nodular area in the periphery of the right middle lobe. This may just be some residual pneumonia. We will follow this in the clinic. Otherwise she is stable and she can go today. Exam (Progress Note) - Constitutional Vitals: Period Temp Pulse Resp BP Sys/Perez Pulse Ox Last 24 Hr 97 F-98.1 F 73-92 16-20 119-170/53-65 94-99 Exam: General appearance: no distress (She looks better and is breathing more comfortably.) - Head Head exam: Present: normal inspection, normocephalic - Eye Eye exam: Present: EOMI. Absent: scleral icterus Pupils: Present: BARRY - ENT ENT exam: Present: normal exam - Neck Neck exam: Present: normal inspection. Absent: lymphadenopathy, thyromegaly - Respiratory Respiratory exam: Present: She does have distant breath sounds but her wheezing and rhonchi are much improved. - Cardiovascular Cardiovascular exam: Present: regular rate and rhythm. Absent: gallop, systolic murmur - GI/Abdominal GI/Abdominal exam: Present: normal bowel sounds, soft. Absent: distended, organomegaly, tenderness - Extremities Exam Extremities exam: Absent: calf tenderness, edema - Neurological Exam Neurological exam: Present: alert, oriented X3, CN II-XII intact - Psychiatric Psychiatric exam: Present: normal affect, normal mood - Skin Skin exam: Present: warm, dry Results - Labs CBC & BMP: 09/30/16 04:07 09/30/16 04:07 - Diagnostic Findings Procedure: Chest x-ray: image reviewed by me, report reviewed by me (Chest x- ray shows significant COPD changes. There is a small nodular area in the right middle lobe periphery that is probably residual infiltrate. Will just follow this as an outpatient.) Assessment and Plan (1) Severe chronic obstructive pulmonary disease Status: Chronic Assessment and plan: The patient has very severe COPD and is very limited. She has responded to steroids and antibiotics and feels better. She will probably go home today. Current Visit: Yes (2) Hypertension Status: Chronic Assessment and plan: Her blood pressure has been reasonably stable. She is not having any signs of heart failure. Current Visit: Yes (3) Steroid-induced diabetes Status: Acute Assessment and plan: She will have some hyperglycemia while on steroids. Her glucose is 130 this morning. Current Visit: Yes (4) Obstructive sleep apnea Status: Chronic Assessment and plan: She can use her oxygen and CPAP at night. Current Visit: Yes Specialty Discharge - Follow Up or Referrals Follow up with: Tiffany Coburn MD [Physician] - 10/15/16 9:20 am (Be there at 8:40 a.m. for lab work with appointment at 9:20 a.m.) Chino Nugent MD [Physician] - 10/20/16 9:30 am (2-3 weeks with chest x- ray)
[2016-10-01 11:44] VITALS: BP 154/75
== END 2016-10-01 13:30 | disposition home or self-care (01) | DRG 190 ==
LOC: N.CL 08:13 → N.TELES 08:13 → N.CL 09:24 → N.TELES 12:45
PROVIDERS: ADMIT Internal Medicine Cardiovascular Disease; ATTEND Internal Medicine Cardiovascular Disease

== ENCOUNTER 2019-01-30 22:41 | Inpatient (IN) ==
[2019-01-30] MEDS ORDERED: MORPHINE 4 MG/1 ML VIAL IV STA (23:18)
[2019-01-30] MEDS ORDERED: ONDANSETRON 4 MG/2 ML VIAL IV STA (23:18)
[2019-01-30] MEDS ORDERED: SODIUM CHLORIDE 0.9% 500 ML IV STA (23:18)
[2019-01-30] MEDS ORDERED: methylPREDNISolone SOD SUC 125 MG/2 ML VIAL IV STA (23:18)
[2019-01-30] MEDS ORDERED: ALBUTEROL NEB SOLN 5 MG/ML 20 ML/BOTTLE RESP TX SCH (23:30)
[2019-01-30 23:32] LABS: Basophils # 0.1 10*3/uL (0.0-0.2); Basophils % 0.7 % (0.0-0.8); Eosinophils # 0.4 10*3/uL (0.0-0.87); Eosinophils % 2.9 % (0.00-10.9); Hematocrit 46.7 VOL% (35.7-47.0); Immature Granulocytes % 0.5 %; Immature Granulocytes Absolute 0.07 #; Lymphocytes # 0.7 10*3/uL (1.4-4.0); Lymphocytes % 5.7 % (21.3-54.2); Mean Corpuscular HGB Conc 28.7 GM/DL (32-36); Mean Corpuscular Volume 85.4 FL (87-102); Mean Platelet Volume 9.7 FL (9.6-12.0); Monocytes % 6.3 % (1.7-12.7); Neutrophils % 83.9 % (38.7-73.9); Platelet Count 225 T/CUMM (130-400); Red Blood Count 5.47 MC/CUMM (3.8-5.5); Red Cell Distribution Width 16.2 % (9.3-17.3); White Blood Count 12.9 T/CUMM (4-12)
[2019-01-30 23:37] LABS: Hemoglobin 13.4 GM/DL (12.0-16.0)
[2019-01-30 23:52] LABS: Alanine Aminotransferase 12 U/L (13-56); Albumin 3.2 G/DL (3.4-5.0); Alkaline Phosphatase 93 U/L (45-117); Aspartate Amino Transferase 9 U/L (0-37); Bilirubin,Total < 0.39 MG/DL (0.2-1.0); Blood Urea Nitrogen 13 MG/DL (7-18); Calcium 9.9 MG/DL (8.5-10.1); Estimated Glom Filtration Rate 115 ML/MIN; Glucose 123 MG/DL (74-106); Osmolality,Calculated 268.2 MOS/KG (273-304); Total Protein 8.1 G/DL (6.4-8.3)
[2019-01-30 23:56] LABS: INR 0.9
[2019-01-31 00:06] LABS: ABG Base Excess 12.2 MMOL/L (-2.5-2.5); ABG HCO3 35.9 MMOL/L (20-26); ABG Oxygen Saturation 91.1 % (95-100); ABG PH 7.243 (7.35-7.45); ABG PO2 70.3 MM HG (80-95); ABG TCO2 40.8 MMOL/L (23-27); Allen Test Positive; Pt O2 Delivery Device Other
[2019-01-31 00:28] LABS: Anisocytosis 1+; Platelet Estimate Adequate
[2019-01-31] MEDS ORDERED: ETOMIDATE 20 MG/10 ML VIAL IV ONE (00:59)
[2019-01-31] MEDS ORDERED: VECURONIUM 10 MG VIAL IV ONE ×2 (00:59→02:08)
[2019-01-31] MEDS ORDERED: PIPERACILLIN/TAZOBACTAM 3,375 MG in SODIUM CHLORIDE 0.9% 100 ML IV STA (01:24)
[2019-01-31] MEDS ORDERED: ONDANSETRON 4 MG/2 ML VIAL IV PRN (01:34)
[2019-01-31] MEDS ORDERED: ETOMIDATE 20 MG/10 ML VIAL IV STA (02:07)
[2019-01-31] MEDS ORDERED: DEXTROSE 50% 25 GM/50 ML VIAL IV PRN (02:08)
[2019-01-31] MEDS ORDERED: GLUCAGON 1 MG VIAL IM PRN (02:08)
[2019-01-31 02:43] LABS: Basophils # 0.1 10*3/uL (0.0-0.2); Basophils % 0.7 % (0.0-0.8); Eosinophils # 0.1 10*3/uL (0.0-0.87); Immature Granulocytes % 0.7 %; Immature Granulocytes Absolute 0.09 #; Lymphocytes # 0.5 10*3/uL (1.4-4.0); Lymphocytes % 3.6 % (21.3-54.2); Mean Corpuscular HGB Conc 28.8 GM/DL (32-36); Mean Corpuscular Volume 85.5 FL (87-102); Mean Platelet Volume 9.5 FL (9.6-12.0); Monocytes % 2.2 % (1.7-12.7); Neutrophils % 91.8 % (38.7-73.9); Platelet Count 210 T/CUMM (130-400); Red Blood Count 5.32 MC/CUMM (3.8-5.5); White Blood Count 13.2 T/CUMM (4-12)
[2019-01-31] MEDS: LEVOFLOXACIN INJ 750 MG in PREMIX 1 EACH IV SCH (02:48)
[2019-01-31 03:01] LABS: Hematocrit 45.2 VOL% (35.7-47.0); Hemoglobin 13.1 GM/DL (12.0-16.0)
[2019-01-31 03:04] LABS: Calcium 9.7 MG/DL (8.5-10.1); Osmolality,Calculated 274.8 MOS/KG (273-304)
[2019-01-31] MEDS: methylPREDNISolone SOD SUC 40 MG/1 ML VIAL IV SCH ×3 (03:23→17:36)
[2019-01-31 03:30] LABS: Band Neutrophils 1 % (0-10); Segmented Neutrophils 98 % (50-85); Total Cells Counted 100
[2019-01-31 03:31] LABS: Anisocytosis 1+; Platelet Estimate Adequate
[2019-01-31 04:24] LABS: Apearance,Urine CLEAR (Clear); Bacteria,Urine Occasional /HPF (Few); Bilirubin,Urine Negative (Negative); Blood, Urine Negative (Negative); Glucose,Urine (UA) Negative (Negative); Hyaline Casts,Urine 5 /LPF (0-3); Ketones,Urine 5 mg/dL (Negative); Mucus,Urine Few /LPF (Occasional); Nitrite,Urine Negative (Negative); Protein,Urine 30 MG/DL; RBC,Urine 3 /HPF (0-4); Squamous Epithelial Cell,Urine Occasional /HPF (0-10); Urine Color Yellow (Yellow); Urine Specific Gravity 1.029 (1.001-1.035); WBC,Urine 5 /HPF (0-6)
[2019-01-31 05:25] LABS: ABG Base Excess 13.4 MMOL/L (-2.5-2.5); ABG HCO3 37.3 MMOL/L (20-26); ABG Oxygen Saturation 99.6 % (95-100); ABG PCO2 63.7 MM HG (35-48); ABG PH 7.418 (7.35-7.45); ABG TCO2 36.3 MMOL/L (23-27); Allen Test Positive; Pt O2 Delivery Device Ventilator
[2019-01-31] MEDS: INSULIN LISPRO 100 UNIT/ML SUBCUT SCH ×4 (06:21→23:15)
[2019-01-31] MEDS: ENOXAPARIN 40 MG/0.4 ML SYRINGE SUBCUT SCH (09:45)
[2019-01-31] MEDS: FAMOTIDINE 20 MG/2 ML VIAL IV SCH ×2 (09:45→21:12)
[2019-01-31] MEDS: MEROPENEM 500 MG in SODIUM CHLORIDE 0.9% 100 ML IV SCH ×3 (09:47→21:12)
[2019-01-31] MEDS: ALBUTEROL/IPRATROPIUM 3 ML NEB RESP TX SCH ×4 (11:30→23:20)
[2019-01-31] MEDS: ACETAMINOPHEN 325 MG TABLET PO PRN (17:48)
[2019-02-01] MEDS: methylPREDNISolone SOD SUC 40 MG/1 ML VIAL IV SCH ×3 (01:46→17:30)
[2019-02-01] MEDS: MEROPENEM 500 MG in SODIUM CHLORIDE 0.9% 100 ML IV SCH ×4 (01:46→19:58)
[2019-02-01] MEDS: LEVOFLOXACIN INJ 750 MG in PREMIX 1 EACH IV SCH (02:17)
[2019-02-01] MEDS: ALBUTEROL/IPRATROPIUM 3 ML NEB RESP TX SCH ×6 (03:22→23:04)
[2019-02-01 04:07] LABS: ABG Base Excess 11.4 MMOL/L (-2.5-2.5); ABG HCO3 37.4 MMOL/L (20-26); ABG Oxygen Saturation 95.1 % (95-100); ABG PCO2 55.7 MM HG (35-48); ABG PH 7.445 (7.35-7.45); ABG PO2 78.4 MM HG (80-95); ABG TCO2 39.1 MMOL/L (23-27); Allen Test Positive; Pt O2 Delivery Device Ventilator
[2019-02-01 04:41] LABS: Basophils % 0.1 % (0.0-0.8); Hematocrit 38.6 VOL% (35.7-47.0); Hemoglobin 11.7 GM/DL (12.0-16.0); Immature Granulocytes % 0.7 %; Immature Granulocytes Absolute 0.08 #; Lymphocytes # 0.5 10*3/uL (1.4-4.0); Lymphocytes % 4.4 % (21.3-54.2); Mean Corpuscular HGB Conc 30.3 GM/DL (32-36); Mean Corpuscular Volume 80.4 FL (87-102); Mean Platelet Volume 10.3 FL (9.6-12.0); Monocytes % 4.6 % (1.7-12.7); Neutrophils % 90.2 % (38.7-73.9); Platelet Count 208 T/CUMM (130-400); Red Cell Distribution Width 16.2 % (9.3-17.3); White Blood Count 11.3 T/CUMM (4-12)
[2019-02-01 05:10] LABS: Calcium 9.1 MG/DL (8.5-10.1); Osmolality,Calculated 278.8 MOS/KG (273-304)
[2019-02-01 05:11] LABS: Eosinophils 1 % (0-10); Hypochromasia 1+; Lymphocytes 6 % (20-55); Platelet Estimate Adequate; Segmented Neutrophils 91 % (50-85); Total Cells Counted 100
[2019-02-01] MEDS: INSULIN LISPRO 100 UNIT/ML SUBCUT SCH ×3 (05:16→17:17)
[2019-02-01 05:34] LABS: Prealbumin 13.3 MG/DL (20-40)
[2019-02-01] MEDS ORDERED: FUROSEMIDE 40 MG/4 ML VIAL IV ONE (07:06)
[2019-02-01] MEDS: ENOXAPARIN 40 MG/0.4 ML SYRINGE SUBCUT SCH (09:06)
[2019-02-01] MEDS: FAMOTIDINE 20 MG/2 ML VIAL IV SCH ×2 (09:07→21:24)
[2019-02-01] MEDS: ACETAMINOPHEN 325 MG TABLET PO PRN (14:25)
[2019-02-02] MEDS: INSULIN LISPRO 100 UNIT/ML SUBCUT SCH ×4 (01:19→18:16)
[2019-02-02] MEDS: methylPREDNISolone SOD SUC 40 MG/1 ML VIAL IV SCH ×3 (02:11→18:20)
[2019-02-02] MEDS: MEROPENEM 500 MG in SODIUM CHLORIDE 0.9% 100 ML IV SCH ×4 (02:14→20:03)
[2019-02-02] MEDS: LEVOFLOXACIN INJ 750 MG in PREMIX 1 EACH IV SCH (02:22)
[2019-02-02] MEDS: ALBUTEROL/IPRATROPIUM 3 ML NEB RESP TX SCH ×6 (02:52→22:38)
[2019-02-02 04:26] LABS: ABG Base Excess 13.2 MMOL/L (-2.5-2.5); ABG Oxygen Saturation 97.5 % (95-100); ABG PCO2 54.5 MM HG (35-48); ABG PH 7.466 (7.35-7.45); ABG PO2 99.6 MM HG (80-95); ABG TCO2 35.1 MMOL/L (23-27); Allen Test Positive; Pt O2 Delivery Device Ventilator
[2019-02-02 05:42] LABS: Basophils % 0.1 % (0.0-0.8); Eosinophils % 0.1 % (0.00-10.9); Hematocrit 36.2 VOL% (35.7-47.0); Hemoglobin 10.9 GM/DL (12.0-16.0); Immature Granulocytes % 0.6 %; Immature Granulocytes Absolute 0.06 #; Lymphocytes # 0.3 10*3/uL (1.4-4.0); Lymphocytes % 3.5 % (21.3-54.2); Mean Corpuscular HGB Conc 30.1 GM/DL (32-36); Mean Platelet Volume 10.2 FL (9.6-12.0); Monocytes % 8.1 % (1.7-12.7); Neutrophils % 87.6 % (38.7-73.9); Platelet Count 205 T/CUMM (130-400); Red Blood Count 4.47 MC/CUMM (3.8-5.5); White Blood Count 9.6 T/CUMM (4-12)
[2019-02-02 05:55] LABS: Calcium 8.3 MG/DL (8.5-10.1); Osmolality,Calculated 283.5 MOS/KG (273-304)
[2019-02-02 06:08] LABS: Band Neutrophils 1 % (0-10); Hypochromasia 1+; Lymphocytes 4 % (20-55); Ovalocytes Slight; Platelet Estimate Adequate; Segmented Neutrophils 89 % (50-85); Total Cells Counted 100
[2019-02-02] MEDS: FUROSEMIDE 20 MG TABLET PER TUBE SCH (10:07)
[2019-02-02] MEDS: LOSARTAN 25 MG TABLET PER TUBE SCH (10:07)
[2019-02-02] MEDS: ENOXAPARIN 40 MG/0.4 ML SYRINGE SUBCUT SCH (10:08)
[2019-02-02] MEDS: FAMOTIDINE 20 MG/2 ML VIAL IV SCH ×2 (10:08→21:16)
[2019-02-02] MEDS ORDERED: ACETAMINOPHEN 325 MG/10.15 ML UDCUP ONE (14:44)
[2019-02-02] MEDS: ACETAMINOPHEN 325 MG/10.15 ML UDCUP PO PRN ×2 (14:47→19:15)
[2019-02-03] MEDS: INSULIN LISPRO 100 UNIT/ML SUBCUT SCH ×5 (00:27→20:58)
[2019-02-03] MEDS: LEVOFLOXACIN INJ 750 MG in PREMIX 1 EACH IV SCH (01:57)
[2019-02-03] MEDS: methylPREDNISolone SOD SUC 40 MG/1 ML VIAL IV SCH ×3 (01:58→21:09)
[2019-02-03] MEDS: MEROPENEM 500 MG in SODIUM CHLORIDE 0.9% 100 ML IV SCH ×4 (01:58→21:03)
[2019-02-03] MEDS: ALBUTEROL/IPRATROPIUM 3 ML NEB RESP TX SCH ×6 (02:27→22:24)
[2019-02-03 03:12] LABS: ABG Base Excess 14.2 MMOL/L (-2.5-2.5); ABG HCO3 40.8 MMOL/L (20-26); ABG PCO2 61.8 MM HG (35-48); ABG PH 7.438 (7.35-7.45); ABG PO2 86.1 MM HG (80-95); ABG TCO2 42.7 MMOL/L (23-27); Allen Test Positive; Pt O2 Delivery Device Ventilator
[2019-02-03 04:12] LABS: Basophils % 0.1 % (0.0-0.8); Eosinophils % 0.1 % (0.00-10.9); Hematocrit 37.6 VOL% (35.7-47.0); Immature Granulocytes % 0.6 %; Immature Granulocytes Absolute 0.05 #; Lymphocytes # 0.4 10*3/uL (1.4-4.0); Lymphocytes % 4.4 % (21.3-54.2); Mean Corpuscular HGB Conc 29.3 GM/DL (32-36); Mean Platelet Volume 10.2 FL (9.6-12.0); Monocytes % 7.1 % (1.7-12.7); Neutrophils % 87.7 % (38.7-73.9); Platelet Count 204 T/CUMM (130-400); Red Blood Count 4.53 MC/CUMM (3.8-5.5); Red Cell Distribution Width 17.5 % (9.3-17.3); White Blood Count 8.9 T/CUMM (4-12)
[2019-02-03 04:28] LABS: Hemoglobin 11.1 GM/DL (12.0-16.0)
[2019-02-03 04:33] LABS: Calcium 8.4 MG/DL (8.5-10.1); Osmolality,Calculated 290.1 MOS/KG (273-304)
[2019-02-03 04:55] LABS: Hypochromasia 1+; Lymphocytes 3 % (20-55); Platelet Estimate Adequate; Segmented Neutrophils 89 % (50-85); Total Cells Counted 100
[2019-02-03] MEDS: ACETAMINOPHEN 325 MG/10.15 ML UDCUP PO PRN (08:13)
[2019-02-03] MEDS: LOSARTAN 25 MG TABLET PER TUBE SCH (08:13)
[2019-02-03] MEDS: FUROSEMIDE 20 MG TABLET PER TUBE SCH (08:13)
[2019-02-03] MEDS: ENOXAPARIN 40 MG/0.4 ML SYRINGE SUBCUT SCH (08:14)
[2019-02-03] MEDS: FAMOTIDINE 20 MG/2 ML VIAL IV SCH ×2 (08:15→21:03)
[2019-02-03] MEDS ORDERED: PHENOL 1.4% THROAT SPRAY 177 ML BOTTLE PO PRN (09:23)
[2019-02-03 10:18] LABS: ABG Base Excess 12.9 MMOL/L (-2.5-2.5); ABG HCO3 36.6 MMOL/L (20-26); ABG Oxygen Saturation 94.6 % (95-100); ABG PH 7.421 (7.35-7.45); ABG PO2 75.1 MM HG (80-95); ABG TCO2 35.7 MMOL/L (23-27); Pt O2 Delivery Device Ventilator
[2019-02-03] MEDS ORDERED: LOSARTAN 25 MG TABLET PO ONE (11:52)
[2019-02-03] MEDS: ALUMINUM/MAGNES/SIMETH MAX STR 30 ML UDCUP PO PRN (14:53)
[2019-02-03] MEDS ORDERED: DEXTROSE 10% 250 ML BAG IV PRN (18:32)
[2019-02-03 20:18] LABS: ABG Base Excess 11.5 MMOL/L (-2.5-2.5); ABG HCO3 35.1 MMOL/L (20-26); ABG Oxygen Saturation 89.4 % (95-100); ABG PH 7.324 (7.35-7.45); ABG PO2 64.1 MM HG (80-95); Allen Test Positive
[2019-02-03 20:21] LABS: ABG PCO2 80.3 MM HG (35-48)
[2019-02-03] MEDS ORDERED: LEVALBUTEROL 1.25 MG/3 ML NEB RESP TX PRN (22:05)
[2019-02-03 22:24] LABS: ABG Base Excess 12.6 MMOL/L (-2.5-2.5); ABG HCO3 36.4 MMOL/L (20-26); ABG PO2 80.1 MM HG (80-95); ABG TCO2 36.5 MMOL/L (23-27); Allen Test Positive; Pt O2 Delivery Device BIPAP
[2019-02-03 22:26] LABS: ABG PCO2 69.9 MM HG (35-48)
[2019-02-04] MEDS: ALUMINUM/MAGNES/SIMETH MAX STR 30 ML UDCUP PO PRN ×2 (00:23→21:28)
[2019-02-04] MEDS: LEVOFLOXACIN INJ 750 MG in PREMIX 1 EACH IV SCH (01:46)
[2019-02-04] MEDS: MEROPENEM 500 MG in SODIUM CHLORIDE 0.9% 100 ML IV SCH ×4 (01:47→21:28)
[2019-02-04 03:06] LABS: ABG Base Excess 13.3 MMOL/L (-2.5-2.5); ABG HCO3 37.1 MMOL/L (20-26); ABG Oxygen Saturation 93.3 % (95-100); ABG PO2 72.8 MM HG (80-95); ABG TCO2 37.4 MMOL/L (23-27); Allen Test Positive; Pt O2 Delivery Device CPAP
[2019-02-04 03:10] LABS: ABG PCO2 70.9 MM HG (35-48)
[2019-02-04] MEDS: ALBUTEROL/IPRATROPIUM 3 ML NEB RESP TX SCH ×6 (03:32→23:29)
[2019-02-04 04:09] LABS: Calcium 8.3 MG/DL (8.5-10.1); Osmolality,Calculated 284.1 MOS/KG (273-304)
[2019-02-04 04:27] LABS: Basophils % 0.2 % (0.0-0.8); Eosinophils # 0.2 10*3/uL (0.0-0.87); Eosinophils % 2.1 % (0.00-10.9); Hematocrit 41.7 VOL% (35.7-47.0); Immature Granulocytes % 0.8 %; Immature Granulocytes Absolute 0.07 #; Lymphocytes % 11.5 % (21.3-54.2); Mean Corpuscular HGB Conc 28.8 GM/DL (32-36); Mean Corpuscular Volume 84.6 FL (87-102); Mean Platelet Volume 10.6 FL (9.6-12.0); Monocytes % 10.2 % (1.7-12.7); Neutrophils % 75.2 % (38.7-73.9); Platelet Count 208 T/CUMM (130-400); Red Blood Count 4.93 MC/CUMM (3.8-5.5); Red Cell Distribution Width 17.8 % (9.3-17.3)
[2019-02-04] MEDS: INSULIN LISPRO 100 UNIT/ML SUBCUT SCH ×4 (08:00→21:05)
[2019-02-04] MEDS: FUROSEMIDE 20 MG TABLET PER TUBE SCH (08:19)
[2019-02-04] MEDS: LOSARTAN 50 MG TABLET PO SCH (08:19)
[2019-02-04] MEDS: ENOXAPARIN 40 MG/0.4 ML SYRINGE SUBCUT SCH (08:20)
[2019-02-04] MEDS: FAMOTIDINE 20 MG/2 ML VIAL IV SCH ×2 (08:21→21:28)
[2019-02-04 08:22] LABS: Allen Test Positive; Pt O2 Delivery Device Other
[2019-02-04 08:24] LABS: ABG Base Excess 12.3 MMOL/L (-2.5-2.5); ABG HCO3 35.9 MMOL/L (20-26); ABG Oxygen Saturation 90.8 % (95-100); ABG PH 7.336 (7.35-7.45); ABG TCO2 37.5 MMOL/L (23-27)
[2019-02-04 08:31] LABS: ABG PCO2 79.2 MM HG (35-48)
[2019-02-04] MEDS: methylPREDNISolone SOD SUC 40 MG/1 ML VIAL IV SCH ×2 (09:43→21:29)
[2019-02-04] MEDS ORDERED: LACTATED RINGERS 500 ML IV ONE (10:05)
[2019-02-04 13:40] LABS: ABG Base Excess 14.6 MMOL/L (-2.5-2.5); ABG HCO3 38.4 MMOL/L (20-26); ABG Oxygen Saturation 91.9 % (95-100); ABG PH 7.395 (7.35-7.45); ABG PO2 65.5 MM HG (80-95); ABG TCO2 38.3 MMOL/L (23-27); Allen Test Positive; Pt O2 Delivery Device BIPAP
[2019-02-04] MEDS: BUDESONIDE 0.5 MG/2 ML NEB RESP TX SCH (19:49)
[2019-02-04] MEDS ORDERED: THEOPHYLLINE ER (24 HR) 300 MG CAPSULE PO SCH (21:00)
[2019-02-04] MEDS: THEOPHYLLINE ER (24 HR) 300 MG CAPSULE PO SCH (21:29)
[2019-02-05] MEDS: LEVOFLOXACIN INJ 750 MG in PREMIX 1 EACH IV SCH (02:09)
[2019-02-05] MEDS: MEROPENEM 500 MG in SODIUM CHLORIDE 0.9% 100 ML IV SCH ×2 (02:09→08:25)
[2019-02-05 03:05] LABS: ABG Base Excess 14.2 MMOL/L (-2.5-2.5); ABG Oxygen Saturation 93.1 % (95-100); ABG PH 7.335 (7.35-7.45); ABG PO2 71.2 MM HG (80-95); ABG TCO2 39.7 MMOL/L (23-27); Allen Test Positive; Pt O2 Delivery Device BIPAP
[2019-02-05 03:08] LABS: ABG PCO2 83.4 MM HG (35-48)
[2019-02-05] MEDS: ALBUTEROL/IPRATROPIUM 3 ML NEB RESP TX SCH ×6 (03:09→23:10)
[2019-02-05 04:34] LABS: Basophils % 0.2 % (0.0-0.8); Eosinophils # 0.5 10*3/uL (0.0-0.87); Immature Granulocytes % 0.7 %; Immature Granulocytes Absolute 0.07 #; Red Cell Distribution Width 17.1 % (9.3-17.3)
[2019-02-05 05:44] LABS: Blood Urea Nitrogen 16 MG/DL (7-18); Calcium 8.7 MG/DL (8.5-10.1); Eosinophils % 4.9 % (0.00-10.9); Estimated Glom Filtration Rate 127 ML/MIN; Glucose 90 MG/DL (74-106); Hematocrit 41.6 VOL% (35.7-47.0); Lymphocytes # 1.3 10*3/uL (1.4-4.0); Lymphocytes % 12.9 % (21.3-54.2); Mean Corpuscular HGB Conc 28.8 GM/DL (32-36); Mean Corpuscular Volume 84.9 FL (87-102); Mean Platelet Volume 10.6 FL (9.6-12.0); Monocytes % 9.6 % (1.7-12.7); Neutrophils % 71.7 % (38.7-73.9); Osmolality,Calculated 286.8 MOS/KG (273-304); Platelet Count 226 T/CUMM (130-400); White Blood Count 10.2 T/CUMM (4-12)
[2019-02-05 05:46] LABS: Ovalocytes Few; Platelet Estimate Normal
[2019-02-05] MEDS: ACETAMINOPHEN 325 MG/10.15 ML UDCUP PO PRN ×2 (05:46→16:07)
[2019-02-05 06:07] LABS: Hypochromasia 1+; Microcytosis 1+
[2019-02-05] MEDS: BUDESONIDE 0.5 MG/2 ML NEB RESP TX SCH ×2 (06:53→18:57)
[2019-02-05] MEDS: INSULIN LISPRO 100 UNIT/ML SUBCUT SCH ×4 (07:57→20:38)
[2019-02-05] MEDS: FAMOTIDINE 20 MG/2 ML VIAL IV SCH ×2 (08:10→20:14)
[2019-02-05] MEDS: FUROSEMIDE 20 MG TABLET PER TUBE SCH (08:11)
[2019-02-05] MEDS: LOSARTAN 50 MG TABLET PO SCH (08:11)
[2019-02-05] MEDS: ENOXAPARIN 40 MG/0.4 ML SYRINGE SUBCUT SCH (08:11)
[2019-02-05] MEDS: methylPREDNISolone SOD SUC 40 MG/1 ML VIAL IV SCH ×2 (10:01→20:38)
[2019-02-05] MEDS: THEOPHYLLINE ER (24 HR) 300 MG CAPSULE PO SCH (20:14)
[2019-02-05] MEDS: ALUMINUM/MAGNES/SIMETH MAX STR 30 ML UDCUP PO PRN (20:47)
[2019-02-06] MEDS: LEVOFLOXACIN INJ 750 MG in PREMIX 1 EACH IV SCH (01:32)
[2019-02-06] MEDS: ALBUTEROL/IPRATROPIUM 3 ML NEB RESP TX SCH ×5 (03:47→19:20)
[2019-02-06] MEDS: ACETAMINOPHEN 325 MG/10.15 ML UDCUP PO PRN (04:16)
[2019-02-06] MEDS: BUDESONIDE 0.5 MG/2 ML NEB RESP TX SCH ×2 (07:33→19:20)
[2019-02-06] MEDS: ARFORMOTEROL 15 MCG/2 ML NEB RESP TX SCH ×2 (07:53→19:20)
[2019-02-06] MEDS: methylPREDNISolone SOD SUC 40 MG/1 ML VIAL IV SCH ×3 (08:09→23:35)
[2019-02-06] MEDS: FUROSEMIDE 20 MG TABLET PER TUBE SCH (08:10)
[2019-02-06] MEDS: LOSARTAN 50 MG TABLET PO SCH (08:10)
[2019-02-06] MEDS: INSULIN LISPRO 100 UNIT/ML SUBCUT SCH ×4 (08:10→21:00)
[2019-02-06] MEDS: FAMOTIDINE 20 MG TABLET PO SCH ×2 (08:10→21:30)
[2019-02-06] MEDS: ENOXAPARIN 40 MG/0.4 ML SYRINGE SUBCUT SCH (08:10)
[2019-02-06 08:14] LABS: Basophils % 0.3 % (0.0-0.8); Eosinophils # 0.1 10*3/uL (0.0-0.87); Eosinophils % 0.7 % (0.00-10.9); Hematocrit 47.2 VOL% (35.7-47.0); Hemoglobin 13.6 GM/DL (12.0-16.0); Immature Granulocytes % 0.8 %; Immature Granulocytes Absolute 0.09 #; Lymphocytes # 1.3 10*3/uL (1.4-4.0); Lymphocytes % 11.2 % (21.3-54.2); Mean Corpuscular HGB Conc 28.8 GM/DL (32-36); Mean Corpuscular Volume 84.4 FL (87-102); Mean Platelet Volume 10.2 FL (9.6-12.0); Monocytes % 6.6 % (1.7-12.7); Neutrophils % 80.4 % (38.7-73.9); Platelet Count 229 T/CUMM (130-400); Red Blood Count 5.59 MC/CUMM (3.8-5.5); Red Cell Distribution Width 16.2 % (9.3-17.3); White Blood Count 11.3 T/CUMM (4-12)
[2019-02-06 08:18] LABS: Hypochromasia 1+; Microcytosis 1+; Platelet Estimate Adequate
[2019-02-06 08:34] LABS: Calcium 9.1 MG/DL (8.5-10.1); Osmolality,Calculated 274.7 MOS/KG (273-304)
[2019-02-06] MEDS ORDERED: DEXTROSE 10% 250 ML BAG IV PRN (10:00)
[2019-02-06] MEDS: CALCIUM (CARBONATE) 600 MG TABLET PO SCH (21:00)
[2019-02-06] MEDS: THEOPHYLLINE ER (24 HR) 300 MG CAPSULE PO SCH (21:29)
[2019-02-07] MEDS: ALBUTEROL/IPRATROPIUM 3 ML NEB RESP TX SCH ×6 (00:01→19:17)
[2019-02-07 05:32] LABS: Calcium 10.1 MG/DL (8.5-10.1); Osmolality,Calculated 281.4 MOS/KG (273-304)
[2019-02-07] MEDS: BUDESONIDE 0.5 MG/2 ML NEB RESP TX SCH ×2 (07:33→19:17)
[2019-02-07] MEDS: ARFORMOTEROL 15 MCG/2 ML NEB RESP TX SCH ×2 (07:33→19:17)
[2019-02-07] MEDS: FAMOTIDINE 20 MG TABLET PO SCH ×2 (09:15→20:41)
[2019-02-07] MEDS: FUROSEMIDE 20 MG TABLET PER TUBE SCH (09:15)
[2019-02-07] MEDS: OMEGA 3 ACID ETHYL ESTERS 1 GM CAPSULE PO SCH (09:15)
[2019-02-07] MEDS: LOSARTAN 50 MG TABLET PO SCH (09:15)
[2019-02-07] MEDS: INSULIN LISPRO 100 UNIT/ML SUBCUT SCH ×3 (09:15→17:03)
[2019-02-07] MEDS: methylPREDNISolone SOD SUC 40 MG/1 ML VIAL IV SCH ×2 (09:15→16:07)
[2019-02-07] MEDS: CALCIUM (CARBONATE) 600 MG TABLET PO SCH ×2 (09:15→20:41)
[2019-02-07] MEDS: ENOXAPARIN 40 MG/0.4 ML SYRINGE SUBCUT SCH (12:04)
[2019-02-07] MEDS: ACETAMINOPHEN 325 MG/10.15 ML UDCUP PO PRN (12:04)
[2019-02-07] MEDS: THEOPHYLLINE ER (24 HR) 300 MG CAPSULE PO SCH (20:40)
[2019-02-08] MEDS: methylPREDNISolone SOD SUC 40 MG/1 ML VIAL IV SCH
[2019-02-08] MEDS: ALBUTEROL/IPRATROPIUM 3 ML NEB RESP TX SCH ×7 (00:03→20:10)
[2019-02-08] MEDS: INSULIN LISPRO 100 UNIT/ML SUBCUT SCH ×5 (00:04→21:55)
[2019-02-08] MEDS ORDERED: methylPREDNISolone SOD SUC 40 MG/1 ML VIAL IV SCH (07:00)
[2019-02-08] MEDS: ARFORMOTEROL 15 MCG/2 ML NEB RESP TX SCH ×2 (07:10→20:10)
[2019-02-08] MEDS: BUDESONIDE 0.5 MG/2 ML NEB RESP TX SCH ×2 (07:10→20:10)
[2019-02-08] MEDS: ENOXAPARIN 40 MG/0.4 ML SYRINGE SUBCUT SCH (08:51)
[2019-02-08] MEDS: CALCIUM (CARBONATE) 600 MG TABLET PO SCH ×2 (08:52→20:56)
[2019-02-08] MEDS: FAMOTIDINE 20 MG TABLET PO SCH ×2 (08:52→20:54)
[2019-02-08] MEDS: OMEGA 3 ACID ETHYL ESTERS 1 GM CAPSULE PO SCH (08:52)
[2019-02-08] MEDS: LOSARTAN 50 MG TABLET PO SCH (08:52)
[2019-02-08] MEDS: FUROSEMIDE 20 MG TABLET PER TUBE SCH (08:52)
[2019-02-08] MEDS: predniSONE 20 MG TABLET PO SCH (13:13)
[2019-02-08] MEDS: THEOPHYLLINE ER (24 HR) 300 MG CAPSULE PO SCH (20:54)
[2019-02-09] MEDS: ALBUTEROL/IPRATROPIUM 3 ML NEB RESP TX SCH ×6 (00:10→20:28)
[2019-02-09 04:55] LABS: Basophils % 0.3 % (0.0-0.8); Eosinophils # 0.1 10*3/uL (0.0-0.87); Eosinophils % 1.1 % (0.00-10.9); Hematocrit 41.8 VOL% (35.7-47.0); Hemoglobin 12.1 GM/DL (12.0-16.0); Immature Granulocytes % 0.9 %; Immature Granulocytes Absolute 0.11 #; Lymphocytes # 1.2 10*3/uL (1.4-4.0); Mean Corpuscular HGB Conc 28.9 GM/DL (32-36); Mean Corpuscular Volume 84.3 FL (87-102); Mean Platelet Volume 10.2 FL (9.6-12.0); Monocytes % 7.5 % (1.7-12.7); Neutrophils % 80.2 % (38.7-73.9); Platelet Count 249 T/CUMM (130-400); Red Blood Count 4.96 MC/CUMM (3.8-5.5); Red Cell Distribution Width 16.5 % (9.3-17.3); White Blood Count 11.9 T/CUMM (4-12)
[2019-02-09 05:30] LABS: Osmolality,Calculated 283.7 MOS/KG (273-304)
[2019-02-09 05:52] LABS: Anisocytosis 1+; Platelet Estimate Adequate
[2019-02-09] MEDS: BUDESONIDE 0.5 MG/2 ML NEB RESP TX SCH ×2 (06:58→20:40)
[2019-02-09] MEDS: ARFORMOTEROL 15 MCG/2 ML NEB RESP TX SCH ×2 (06:58→20:40)
[2019-02-09] MEDS ORDERED: POTASSIUM CHLORIDE RIDER 10 MEQ in PREMIX 1 EACH IV PRN (07:34)
[2019-02-09] MEDS ORDERED: POTASSIUM CHLORIDE RIDER 20 MEQ in PREMIX 1 EACH IV PRN (07:34)
[2019-02-09] MEDS: INSULIN LISPRO 100 UNIT/ML SUBCUT SCH ×4 (08:00→22:26)
[2019-02-09] MEDS ORDERED: FUROSEMIDE 20 MG TABLET PO SCH (09:54)
[2019-02-09] MEDS: ENOXAPARIN 40 MG/0.4 ML SYRINGE SUBCUT SCH (10:08)
[2019-02-09] MEDS: predniSONE 20 MG TABLET PO SCH (10:08)
[2019-02-09] MEDS: POTASSIUM CHLORIDE 20 MEQ TABLET PO PRN ×2 (10:08→14:45)
[2019-02-09] MEDS: LOSARTAN 50 MG TABLET PO SCH (10:08)
[2019-02-09] MEDS: FAMOTIDINE 20 MG TABLET PO SCH ×2 (10:08→20:56)
[2019-02-09] MEDS: OMEGA 3 ACID ETHYL ESTERS 1 GM CAPSULE PO SCH (10:08)
[2019-02-09] MEDS: CALCIUM (CARBONATE) 600 MG TABLET PO SCH ×2 (10:08→20:56)
[2019-02-09] MEDS: FUROSEMIDE 20 MG TABLET PER TUBE SCH (10:51)
[2019-02-09] MEDS ORDERED: FUROSEMIDE 40 MG/4 ML VIAL IV ONE (12:29)
[2019-02-09] MEDS ORDERED: MAGNESIUM SULF RIDER 4 GM in PREMIX 1 EACH IV PRN (13:49)
[2019-02-09] MEDS ORDERED: MAGNESIUM SULF RIDER 2 GM in PREMIX 1 EACH IV PRN (13:49)
[2019-02-09] MEDS: guaiFENesin/CODEINE 5 ML LIQUID PO PRN (16:29)
[2019-02-09] MEDS: POTASSIUM CHLORIDE 8 MEQ CAPSULE PO SCH (20:56)
[2019-02-09] MEDS: MAGNESIUM CHLORIDE 64 MG TABLET PO SCH (20:56)
[2019-02-09] MEDS: THEOPHYLLINE ER (24 HR) 300 MG CAPSULE PO SCH (20:56)
[2019-02-10 04:54] LABS: Basophils % 0.4 % (0.0-0.8); Eosinophils # 0.2 10*3/uL (0.0-0.87); Eosinophils % 2.3 % (0.00-10.9); Immature Granulocytes % 0.9 %; Immature Granulocytes Absolute 0.09 #; Lymphocytes # 1.3 10*3/uL (1.4-4.0); Lymphocytes % 12.9 % (21.3-54.2); Mean Corpuscular HGB Conc 28.8 GM/DL (32-36); Mean Corpuscular Volume 85.1 FL (87-102); Mean Platelet Volume 10.3 FL (9.6-12.0); Monocytes % 9.7 % (1.7-12.7); Neutrophils % 73.8 % (38.7-73.9); Platelet Count 251 T/CUMM (130-400); Red Blood Count 4.97 MC/CUMM (3.8-5.5); Red Cell Distribution Width 16.7 % (9.3-17.3); White Blood Count 10.1 T/CUMM (4-12)
[2019-02-10 05:18] LABS: Hemoglobin 12.2 GM/DL (12.0-16.0)
[2019-02-10 05:32] LABS: Anisocytosis 1+
[2019-02-10 05:33] LABS: Ovalocytes 1+; Platelet Estimate Adequate
[2019-02-10] MEDS: ALBUTEROL/IPRATROPIUM 3 ML NEB RESP TX SCH ×3 (06:10→10:46)
[2019-02-10 06:11] LABS: Blood Urea Nitrogen 22 MG/DL (7-18); Calcium 9.2 MG/DL (8.5-10.1); Estimated Glom Filtration Rate 118 ML/MIN; Glucose 83 MG/DL (74-106); Osmolality,Calculated 284.1 MOS/KG (273-304)
[2019-02-10] MEDS: ARFORMOTEROL 15 MCG/2 ML NEB RESP TX SCH (08:00)
[2019-02-10] MEDS: BUDESONIDE 0.5 MG/2 ML NEB RESP TX SCH (08:00)
[2019-02-10] MEDS: INSULIN LISPRO 100 UNIT/ML SUBCUT SCH (08:26)
[2019-02-10] MEDS: ENOXAPARIN 40 MG/0.4 ML SYRINGE SUBCUT SCH (09:11)
[2019-02-10] MEDS: LOSARTAN 50 MG TABLET PO SCH (09:12)
[2019-02-10] MEDS: OMEGA 3 ACID ETHYL ESTERS 1 GM CAPSULE PO SCH (09:12)
[2019-02-10] MEDS: FAMOTIDINE 20 MG TABLET PO SCH (09:12)
[2019-02-10] MEDS: predniSONE 20 MG TABLET PO SCH (09:12)
[2019-02-10] MEDS: CALCIUM (CARBONATE) 600 MG TABLET PO SCH (09:12)
[2019-02-10] MEDS: POTASSIUM CHLORIDE 8 MEQ CAPSULE PO SCH (09:12)
[2019-02-10] MEDS: MAGNESIUM CHLORIDE 64 MG TABLET PO SCH (09:12)
[2019-02-10] MEDS: guaiFENesin/CODEINE 5 ML LIQUID PO PRN (09:13)
[2019-02-10 13:27] VITALS: BP 123/76
== END 2019-02-10 15:35 | disposition home or self-care (01) | DRG 208 ==
LOC: N.ED 22:41 → SUATTDRO 01-31 01:34 → N.EDINP 01-31 01:34 → N.ICU 01-31 02:07 → N.4E 02-06 13:13
PROVIDERS: ADMIT Internal Medicine; ATTEND Internal Medicine

== ENCOUNTER 2019-02-12 12:19 | Inpatient (IN) ==
[2019-02-12] MEDS ORDERED: ALBUTEROL 2.5 MG/3 ML NEB RESP TX STA (12:44)
[2019-02-12 12:55] LABS: ABG Base Excess 19.1 MMOL/L (-2.5-2.5); ABG HCO3 43.2 MMOL/L (20-26); ABG Oxygen Saturation 86.5 % (95-100); ABG PH 7.273 (7.35-7.45); ABG PO2 54.8 MM HG (80-95); ABG TCO2 47.3 MMOL/L (23-27)
[2019-02-12 12:58] LABS: Basophils % 0.2 % (0.0-0.8); Eosinophils % 0.1 % (0.00-10.9); Hemoglobin 12.9 GM/DL (12.0-16.0); Immature Granulocytes % 1.3 %; Immature Granulocytes Absolute 0.22 #; Lymphocytes # 0.6 10*3/uL (1.4-4.0); Lymphocytes % 3.8 % (21.3-54.2); Mean Corpuscular HGB Conc 27.5 GM/DL (32-36); Mean Corpuscular Volume 89.2 FL (87-102); Monocytes % 1.5 % (1.7-12.7); Neutrophils % 93.1 % (38.7-73.9); Platelet Count 265 T/CUMM (130-400); Red Blood Count 5.26 MC/CUMM (3.8-5.5); Red Cell Distribution Width 16.1 % (9.3-17.3); White Blood Count 16.4 T/CUMM (4-12)
[2019-02-12 13:01] LABS: Hematocrit 46.9 VOL% (35.7-47.0)
[2019-02-12 13:08] LABS: PT Patient Result 10.4 SECS (9.6-12.2); Partial Thromboplastin Time 25.2 SECS (20.8-36.0)
[2019-02-12 13:18] LABS: Band Neutrophils 9 % (0-10); Lymphocytes 6 % (20-55); Platelet Estimate Normal; Segmented Neutrophils 83 % (50-85); Total Cells Counted 100
[2019-02-12 13:19] LABS: Basophilic Stippling Slight; Giant Platelets Few; Macrocytosis Slight
[2019-02-12 14:01] LABS: Alanine Aminotransferase 71 U/L (13-56); Albumin 3.3 G/DL (3.4-5.0); Alkaline Phosphatase 72 U/L (45-117); Aspartate Amino Transferase 10 U/L (0-37); Bilirubin,Total < 0.39 MG/DL (0.2-1.0); Blood Urea Nitrogen 15 MG/DL (7-18); Calcium 9.2 MG/DL (8.5-10.1); Estimated Glom Filtration Rate 110 ML/MIN; Glucose 166 MG/DL (74-106); Osmolality,Calculated 283.4 MOS/KG (273-304); Total Protein 7.2 G/DL (6.4-8.3)
[2019-02-12 14:49] LABS: Apearance,Urine Slightly Hazy (Clear); Bilirubin,Urine Negative (Negative); Blood, Urine Negative (Negative); Glucose,Urine (UA) Negative (Negative); Hyaline Casts,Urine 30 /LPF (0-3); Ketones,Urine Negative (Negative); Mucus,Urine Moderate /LPF (Occasional); Nitrite,Urine Negative (Negative); Protein,Urine 30 MG/DL; RBC,Urine <1 /HPF (0-4); Squamous Epithelial Cell,Urine Occasional /HPF (0-10); Urine Color Yellow (Yellow); Urine Specific Gravity 1.018 (1.001-1.035); Urine Urobilinogen < 2.0 EU/DL (0.2-1.0)
[2019-02-12 14:52] LABS: Barbiturates Screen,Urine Negative (Negative); Benzodiazepines Screen,Urine Negative (Negative); Cannabinoid Screen,Urine Negative (Negative); Opiate Screen,Urine Negative (Negative); Phencyclidine Screen,Urine Negative (Negative)
[2019-02-12] MEDS ORDERED: ALBUTEROL 2.5 MG/3 ML NEB RESP TX PRN (16:11)
[2019-02-12] MEDS ORDERED: ONDANSETRON 4 MG/2 ML VIAL IV PRN (16:11)
[2019-02-12] MEDS ORDERED: CYANOCOBALAMIN 1000 MCG/1 ML VIAL IM SCH (16:11)
[2019-02-12] MEDS ORDERED: DEXTROSE 50% 25 GM/50 ML VIAL IV PRN (16:11)
[2019-02-12] MEDS ORDERED: ACETAMINOPHEN 325 MG TABLET PO PRN (16:11)
[2019-02-12] MEDS ORDERED: GLUCAGON 1 MG VIAL IM PRN (16:11)
[2019-02-12 16:26] LABS: ABG Base Excess 18.5 MMOL/L (-2.5-2.5); ABG HCO3 42.6 MMOL/L (20-26); ABG Oxygen Saturation 90.2 % (95-100); ABG PH 7.247 (7.35-7.45); ABG PO2 63.4 MM HG (80-95); ABG TCO2 47.5 MMOL/L (23-27); Allen Test Positive
[2019-02-12] MEDS: PANTOPRAZOLE 40 MG TABLET PO SCH (16:57)
[2019-02-12] MEDS ORDERED: THEOPHYLLINE ER 300 MG TABLET PO SCH (17:00)
[2019-02-12] MEDS: INSULIN LISPRO 100 UNIT/ML SUBCUT SCH ×2 (18:04→21:33)
[2019-02-12] MEDS: ENOXAPARIN 40 MG/0.4 ML SYRINGE SUBCUT SCH (18:22)
[2019-02-12] MEDS: methylPREDNISolone SOD SUC 40 MG/1 ML VIAL IV SCH (18:22)
[2019-02-12] MEDS: METOCLOPRAMIDE 10 MG TABLET PO SCH ×2 (18:23→21:48)
[2019-02-12] MEDS: MEROPENEM 500 MG in SODIUM CHLORIDE 0.9% 100 ML IV SCH (18:23)
[2019-02-12] MEDS ORDERED: IPRATROPIUM 500 MCG/2.5 ML NEB RESP TX SCH (19:00)
[2019-02-12] MEDS: AMINOPHYLLINE 1,000 MG in SODIUM CHLORIDE 0.9% 460 ML IV SCH (19:35)
[2019-02-12] MEDS: ALBUTEROL/IPRATROPIUM 3 ML NEB RESP TX SCH ×2 (19:58→23:30)
[2019-02-12] MEDS ORDERED: CALCIUM (CARBONATE) 600 MG TABLET PO SCH (21:00)
[2019-02-12] MEDS: CALCIUM (CARBONATE) 600 MG TABLET PO SCH (21:48)
[2019-02-12] MEDS: FLUTICASONE/SALMETEROL 500-50 DISKUS 14 DOSE INH SCH (21:49)
[2019-02-13] MEDS: MEROPENEM 500 MG in SODIUM CHLORIDE 0.9% 100 ML IV SCH ×5 (00:06→23:54)
[2019-02-13] MEDS: methylPREDNISolone SOD SUC 40 MG/1 ML VIAL IV SCH ×3 (01:13→22:05)
[2019-02-13 04:04] LABS: ABG HCO3 45.6 MMOL/L (20-26); ABG PO2 66.3 MM HG (80-95); ABG TCO2 46.9 MMOL/L (23-27); Allen Test Positive; Pt O2 Delivery Device BIPAP
[2019-02-13 06:32] LABS: Blood Urea Nitrogen 14 MG/DL (7-18); Calcium 9.3 MG/DL (8.5-10.1); Estimated Glom Filtration Rate 125 ML/MIN; Glucose 141 MG/DL (74-106); Osmolality,Calculated 275.8 MOS/KG (273-304); Troponin I < 0.015 NG/ML (0.00-0.045)
[2019-02-13 06:33] LABS: Basophils % 0.2 % (0.0-0.8); Hematocrit 42.8 VOL% (35.7-47.0); Immature Granulocytes % 1.3 %; Immature Granulocytes Absolute 0.15 #; Lymphocytes # 0.4 10*3/uL (1.4-4.0); Lymphocytes % 3.6 % (21.3-54.2); Mean Corpuscular Volume 86.8 FL (87-102); Mean Platelet Volume 10.4 FL (9.6-12.0); Neutrophils % 93.9 % (38.7-73.9); Platelet Count 219 T/CUMM (130-400); Red Blood Count 4.93 MC/CUMM (3.8-5.5); Red Cell Distribution Width 15.7 % (9.3-17.3); White Blood Count 11.3 T/CUMM (4-12)
[2019-02-13 06:52] LABS: Band Neutrophils 1 % (0-10); Eosinophils 1 % (0-10); Hypochromasia 2+; Lymphocytes 6 % (20-55); Microcytosis 1+; Ovalocytes Few; Segmented Neutrophils 89 % (50-85); Total Cells Counted 100
[2019-02-13 06:53] LABS: Platelet Estimate Normal
[2019-02-13] MEDS: ALBUTEROL/IPRATROPIUM 3 ML NEB RESP TX SCH ×5 (07:20→23:53)
[2019-02-13] MEDS: INSULIN LISPRO 100 UNIT/ML SUBCUT SCH ×4 (07:57→22:04)
[2019-02-13] MEDS: CALCIUM (CARBONATE) 600 MG TABLET PO SCH ×2 (08:12→22:04)
[2019-02-13] MEDS: PANTOPRAZOLE 40 MG TABLET PO SCH (08:12)
[2019-02-13] MEDS: METOCLOPRAMIDE 10 MG TABLET PO SCH ×4 (08:12→22:05)
[2019-02-13] MEDS: ASPIRIN EC 81 MG TABLET PO SCH (08:12)
[2019-02-13] MEDS: ROFLUMILAST 500 MCG TABLET PO SCH (08:12)
[2019-02-13] MEDS: FLUTICASONE/SALMETEROL 500-50 DISKUS 14 DOSE INH SCH ×2 (08:13→22:04)
[2019-02-13] MEDS: ENOXAPARIN 40 MG/0.4 ML SYRINGE SUBCUT SCH (18:20)
[2019-02-13] MEDS: AMINOPHYLLINE 1,000 MG in SODIUM CHLORIDE 0.9% 460 ML IV SCH (19:55)
[2019-02-14] MEDS: MEROPENEM 500 MG in SODIUM CHLORIDE 0.9% 100 ML IV SCH ×3 (05:05→17:29)
[2019-02-14 05:06] LABS: ABG PCO2 95.7 MM HG (35-48); ABG PH 7.349 (7.35-7.45)
[2019-02-14 05:15] LABS: Osmolality,Calculated 278.8 MOS/KG (273-304)
[2019-02-14 05:31] LABS: Basophils % 0.3 % (0.0-0.8); Hematocrit 41.5 VOL% (35.7-47.0); Hemoglobin 12.2 GM/DL (12.0-16.0); Immature Granulocytes Absolute 0.14 #; Lymphocytes # 0.5 10*3/uL (1.4-4.0); Lymphocytes % 3.7 % (21.3-54.2); Mean Corpuscular HGB Conc 29.4 GM/DL (32-36); Mean Corpuscular Volume 84.2 FL (87-102); Mean Platelet Volume 10.8 FL (9.6-12.0); Monocytes % 1.6 % (1.7-12.7); Neutrophils % 93.4 % (38.7-73.9); Platelet Count 210 T/CUMM (130-400); Red Blood Count 4.93 MC/CUMM (3.8-5.5); Red Cell Distribution Width 16.2 % (9.3-17.3); White Blood Count 13.5 T/CUMM (4-12)
[2019-02-14 05:39] LABS: Band Neutrophils 2 % (0-10); Hypochromasia 2+; Lymphocytes 1 % (20-55); Microcytosis 1+; Ovalocytes Slight; Segmented Neutrophils 96 % (50-85); Total Cells Counted 100
[2019-02-14 05:40] LABS: Platelet Estimate Normal
[2019-02-14] MEDS: INSULIN LISPRO 100 UNIT/ML SUBCUT SCH ×4 (07:46→21:12)
[2019-02-14] MEDS: PANTOPRAZOLE 40 MG TABLET PO SCH (08:14)
[2019-02-14] MEDS: ROFLUMILAST 500 MCG TABLET PO SCH (08:14)
[2019-02-14] MEDS: ASPIRIN EC 81 MG TABLET PO SCH (08:14)
[2019-02-14] MEDS: METOCLOPRAMIDE 10 MG TABLET PO SCH ×4 (08:14→21:11)
[2019-02-14] MEDS: CALCIUM (CARBONATE) 600 MG TABLET PO SCH ×2 (08:14→21:11)
[2019-02-14] MEDS: methylPREDNISolone SOD SUC 40 MG/1 ML VIAL IV SCH ×2 (08:15→21:11)
[2019-02-14] MEDS: FLUTICASONE/SALMETEROL 500-50 DISKUS 14 DOSE INH SCH ×2 (08:25→21:16)
[2019-02-14] MEDS: ALBUTEROL/IPRATROPIUM 3 ML NEB RESP TX SCH ×5 (08:48→23:30)
[2019-02-14] MEDS ORDERED: ALUMINUM/MAGNES/SIMETH MAX STR 30 ML UDCUP PO PRN (09:58)
[2019-02-14] MEDS: ENOXAPARIN 40 MG/0.4 ML SYRINGE SUBCUT SCH (16:31)
[2019-02-14] MEDS: AMINOPHYLLINE 1,000 MG in SODIUM CHLORIDE 0.9% 460 ML IV SCH (22:04)
[2019-02-15] MEDS: MEROPENEM 500 MG in SODIUM CHLORIDE 0.9% 100 ML IV SCH ×3 (01:14→10:50)
[2019-02-15 05:27] LABS: Basophils % 0.2 % (0.0-0.8); Hematocrit 39.2 VOL% (35.7-47.0); Immature Granulocytes Absolute 0.11 #; Lymphocytes # 0.5 10*3/uL (1.4-4.0); Lymphocytes % 4.4 % (21.3-54.2); Mean Corpuscular HGB Conc 29.8 GM/DL (32-36); Mean Corpuscular Volume 82.2 FL (87-102); Mean Platelet Volume 10.8 FL (9.6-12.0); Monocytes % 3.3 % (1.7-12.7); Neutrophils % 91.1 % (38.7-73.9); Platelet Count 200 T/CUMM (130-400); Red Blood Count 4.77 MC/CUMM (3.8-5.5); Red Cell Distribution Width 16.7 % (9.3-17.3); White Blood Count 11.3 T/CUMM (4-12)
[2019-02-15 05:49] LABS: Hemoglobin 11.8 GM/DL (12.0-16.0)
[2019-02-15 05:50] LABS: Calcium 8.7 MG/DL (8.5-10.1); Osmolality,Calculated 282.3 MOS/KG (273-304)
[2019-02-15 06:09] LABS: Hypochromasia 1+; Lymphocytes 1 % (20-55); Ovalocytes Slight; Platelet Estimate Adequate; Segmented Neutrophils 98 % (50-85); Total Cells Counted 100
[2019-02-15 06:10] LABS: Microcytosis 1+
[2019-02-15] MEDS: ALBUTEROL/IPRATROPIUM 3 ML NEB RESP TX SCH ×4 (07:16→19:23)
[2019-02-15] MEDS: ASPIRIN EC 81 MG TABLET PO SCH (08:12)
[2019-02-15] MEDS: ROFLUMILAST 500 MCG TABLET PO SCH (08:12)
[2019-02-15] MEDS: CALCIUM (CARBONATE) 600 MG TABLET PO SCH ×2 (08:12→21:08)
[2019-02-15] MEDS: PANTOPRAZOLE 40 MG TABLET PO SCH (08:12)
[2019-02-15] MEDS: METOCLOPRAMIDE 10 MG TABLET PO SCH ×4 (08:12→21:08)
[2019-02-15] MEDS: methylPREDNISolone SOD SUC 40 MG/1 ML VIAL IV SCH ×2 (08:13→21:08)
[2019-02-15] MEDS: INSULIN LISPRO 100 UNIT/ML SUBCUT SCH ×4 (08:16→21:05)
[2019-02-15] MEDS: FLUTICASONE/SALMETEROL 500-50 DISKUS 14 DOSE INH SCH ×2 (08:16→21:16)
[2019-02-15] MEDS ORDERED: ALUMINUM/MAGNES/SIMETH MAX STR 30 ML UDCUP PO PRN (11:35)
[2019-02-15] MEDS: LEVOFLOXACIN 500 MG TABLET PO SCH (12:43)
[2019-02-15] MEDS: DILTIAZEM CD 180 MG CAPSULE PO SCH (12:43)
[2019-02-15] MEDS: THEOPHYLLINE ER (24 HR) 300 MG CAPSULE PO SCH (12:43)
[2019-02-15] MEDS: ENOXAPARIN 40 MG/0.4 ML SYRINGE SUBCUT SCH (16:18)
[2019-02-15] MEDS: MAGNESIUM CHLORIDE 64 MG TABLET PO SCH (21:08)
[2019-02-16] MEDS: ALBUTEROL/IPRATROPIUM 3 ML NEB RESP TX SCH ×4 (03:01→14:39)
[2019-02-16] MEDS: INSULIN LISPRO 100 UNIT/ML SUBCUT SCH ×2 (08:01→12:34)
[2019-02-16] MEDS: CALCIUM (CARBONATE) 600 MG TABLET PO SCH (08:49)
[2019-02-16] MEDS: DILTIAZEM CD 180 MG CAPSULE PO SCH (08:50)
[2019-02-16] MEDS: THEOPHYLLINE ER (24 HR) 300 MG CAPSULE PO SCH (08:51)
[2019-02-16] MEDS: ROFLUMILAST 500 MCG TABLET PO SCH (08:51)
[2019-02-16] MEDS: PANTOPRAZOLE 40 MG TABLET PO SCH (08:51)
[2019-02-16] MEDS: MAGNESIUM CHLORIDE 64 MG TABLET PO SCH (08:51)
[2019-02-16] MEDS: ASPIRIN EC 81 MG TABLET PO SCH (08:51)
[2019-02-16] MEDS: METOCLOPRAMIDE 10 MG TABLET PO SCH ×2 (08:51→12:40)
[2019-02-16] MEDS: methylPREDNISolone SOD SUC 40 MG/1 ML VIAL IV SCH (08:52)
[2019-02-16] MEDS: FLUTICASONE/SALMETEROL 500-50 DISKUS 14 DOSE INH SCH (08:53)
[2019-02-16] MEDS: LEVOFLOXACIN 500 MG TABLET PO SCH (12:40)
[2019-02-16 12:43] VITALS: BP 161/72
== END 2019-02-16 15:26 | disposition home health service (06) | DRG 189 ==
LOC: EDBD → EDUNIT# → N.ED 12:19 → SUATTDRO 14:25 → N.EDINP 14:25 → N.ICU 14:57 → N.5E 02-14 11:04
PROVIDERS: ADMIT Internal Medicine; ATTEND Hospitalist

== ENCOUNTER 2019-08-02 14:22 | Inpatient (IN) ==
[2019-08-02] MEDS ORDERED: ALBUTEROL/IPRATROPIUM 3 ML NEB RESP TX STA (14:45)
[2019-08-02 15:08] LABS: Red Cell Distribution Width 16.2 % (9.3-17.3)
[2019-08-02 15:26] LABS: Basophils # 0.1 10*3/uL (0.0-0.2); Basophils % 0.8 % (0.0-0.8); Eosinophils # 0.2 10*3/uL (0.0-0.87); Eosinophils % 1.1 % (0.00-10.9); Hematocrit 44.3 VOL% (35.7-47.0); Immature Granulocytes % 0.8 %; Lymphocytes % 7.8 % (21.3-54.2); Mean Corpuscular HGB Conc 29.3 GM/DL (32-36); Mean Corpuscular Volume 84.2 FL (87-102); Mean Platelet Volume 10.4 FL (9.6-12.0); Neutrophils % 81.5 % (38.7-73.9); Platelet Count 329 T/CUMM (130-400); Red Blood Count 5.26 MC/CUMM (3.8-5.5); White Blood Count 13.2 T/CUMM (4-12)
[2019-08-02 15:27] LABS: Alanine Aminotransferase 47 U/L (13-56); Albumin 3.3 G/DL (3.4-5.0); Alkaline Phosphatase 91 U/L (45-117); Aspartate Amino Transferase 28 U/L (0-37); Bilirubin,Total < 0.39 MG/DL (0.2-1.0); Blood Urea Nitrogen 15 MG/DL (7-18); Calcium 9.1 MG/DL (8.5-10.1); Estimated Glom Filtration Rate 103 ML/MIN; Glucose 102 MG/DL (74-106); Osmolality,Calculated 268.2 MOS/KG (273-304); Total Protein 7.4 G/DL (6.4-8.3)
[2019-08-02] MEDS ORDERED: LACTULOSE 20 GM/30 ML UDCUP ONE (15:33)
[2019-08-02] MEDS ORDERED: AZITHROMYCIN 250 MG TABLET PO STA (15:35)
[2019-08-02] MEDS ORDERED: cefTRIAXone 1,000 MG in SODIUM CHLORIDE 0.9% 100 ML IV STA (15:35)
[2019-08-02] MEDS ORDERED: LACTULOSE 20 GM/30 ML UDCUP PO STA (15:38)
[2019-08-02 16:12] LABS: Apearance,Urine Slightly Hazy (Clear); Bilirubin,Urine Small mg/dL (Negative); Blood, Urine Negative (Negative); Glucose,Urine (UA) Negative (Negative); Hyaline Casts,Urine 14 /LPF (0-3); Ketones,Urine 5 mg/dL (Negative); Mucus,Urine Many /LPF (Occasional); Nitrite,Urine Negative (Negative); Protein,Urine 30 MG/DL; RBC,Urine 3 /HPF (0-4); Squamous Epithelial Cell,Urine Occasional /HPF (0-10); Urine Color Amber (Yellow); Urine Specific Gravity 1.028 (1.001-1.035); Urine Urobilinogen < 2.0 EU/DL (0.2-1.0); WBC,Urine 11 /HPF (0-6)
[2019-08-02] MEDS ORDERED: ONDANSETRON 4 MG/2 ML VIAL IV PRN (16:27)
[2019-08-02] MEDS ORDERED: MAGNESIUM CITRATE 300 ML BOTTLE PO ONE (16:31)
[2019-08-02] MEDS ORDERED: DEXTROSE 10% 250 ML BAG IV PRN (16:55)
[2019-08-02] MEDS ORDERED: GLUCAGON 1 MG VIAL IM PRN (16:55)
[2019-08-02] MEDS ORDERED: INFLUENZA VIRUS VACCINE 0.5 ML SYRINGE IM ONE (18:15)
[2019-08-02] MEDS ORDERED: PNEUMOCOCCAL VACCINE (13 VALENT) 0.5 ML SYRINGE IM ONE (18:15)
[2019-08-02] MEDS: ALBUTEROL/IPRATROPIUM 3 ML NEB RESP TX SCH (19:43)
[2019-08-02] MEDS: INSULIN LISPRO 100 UNIT/ML SUBCUT SCH (20:59)
[2019-08-02] MEDS: oxyCODONE/ACETAMINOPHEN 5-325 MG TABLET PO PRN (21:02)
[2019-08-03] MEDS: ALBUTEROL/IPRATROPIUM 3 ML NEB RESP TX SCH ×3 (00:35→13:10)
[2019-08-03] MEDS: oxyCODONE/ACETAMINOPHEN 5-325 MG TABLET PO PRN ×2 (05:19→12:07)
[2019-08-03 05:33] LABS: Basophils # 0.1 10*3/uL (0.0-0.2); Basophils % 0.8 % (0.0-0.8); Eosinophils # 0.3 10*3/uL (0.0-0.87); Eosinophils % 2.3 % (0.00-10.9); Hemoglobin 12.3 GM/DL (12.0-16.0); Immature Granulocytes % 0.8 %; Lymphocytes % 8.5 % (21.3-54.2); Mean Corpuscular HGB Conc 28.9 GM/DL (32-36); Mean Platelet Volume 10.1 FL (9.6-12.0); Monocytes % 9.1 % (1.7-12.7); Neutrophils % 78.5 % (38.7-73.9); Platelet Count 316 T/CUMM (130-400); Red Blood Count 5.01 MC/CUMM (3.8-5.5); Red Cell Distribution Width 16.3 % (9.3-17.3)
[2019-08-03 05:57] LABS: Hematocrit 40.8 VOL% (35.7-47.0)
[2019-08-03 06:08] LABS: Hypochromasia 1+; Microcytosis Slight; Platelet Estimate Adequate
[2019-08-03 06:12] LABS: Calcium 9.1 MG/DL (8.5-10.1); Osmolality,Calculated 267.2 MOS/KG (273-304)
[2019-08-03] MEDS: INSULIN LISPRO 100 UNIT/ML SUBCUT SCH ×2 (07:38→12:51)
[2019-08-03 12:49] VITALS: BP 147/98
== END 2019-08-03 15:15 | disposition home or self-care (01) | DRG 543 ==
LOC: N.ED 14:22 → N.EDINP 16:27 → N.4E 17:29
PROVIDERS: ADMIT Internal Medicine Geriatric Medicine; ATTEND Internal Medicine Geriatric Medicine